=== PATIENT | female | born 1945 | race Caucasian/White ===

== ENCOUNTER 2020-02-11 14:34 | Outpatient (CLI) | payer MEDICARE, SELFPAY ==
--- NOTE | ~2020-02-11 | CT_ITS ---
EXAMINATION: CT abdomen pelvis w con INDICATION: Gastroesophageal reflux disease, nausea and vomiting, weight loss, history of cervical ca ncer TECHNIQUE: Computed tomographic images of the abdomen and pelvis were obtained after the administrati on of 100 cc of Omnipaque 350 intravenous contrast. The dose-length product (DLP) was 422.97 mGy-cm. Automated exposure control and iterative reconstruction technique were employed. COMPARISON: 07/11/2017 FINDINGS: There is moderate emphysema of the visualized lung bases. The heart size is normal. Punctat e calcifications in otherwise normal appearing liver and spleen likely represent healed granulomatous disease. The pancreas and adrenal glands are normal. There is chronic mild distention of the gallbla dder. The kidneys are unremarkable. No pathologically enlarged abdominal or pelvic lymph nodes are id entified. There is calcified atherosclerosis of the aorta and many of the other arteries. There is no free intraperitoneal gas or evidence of bowel obstruction. A large volume of colonic stool is presen t. A pain pump is implanted in the subcutaneous tissues of the left anterior abdominal wall. The cat heter enters the central spinal canal at the L1-2 level. There is severe lumbar spondylosis. IMPRESSION: 1. Constipation. Reviewed, dictated and finalized at location A. IMPRESSION: 1. Constipation.
[2020-02-11 15:04] LABS: Estimated Glomerular Filt Rate > 60
== END 2020-02-11 14:35 | disposition home or self-care (01) ==
LOC: ANHIMG 14:35
PROVIDERS: PCP Family Medicine; Visit Provider Internal Medicine Gastroenterology
DX: M85.80 Other specified disorders of bone density and structure, unspecified site (principal); K59.00 Constipation, unspecified
CPT/HCPCS: 36415; 74177; Q9967

== ENCOUNTER 2020-02-23 07:00 | Outpatient (CLI) | payer MEDICARE, SELFPAY ==
--- NOTE | ~2020-02-23 | DEXA_ITS ---
Bone Density Report Name: Khushbu Avina Age: 74 Sex: Female Ethnicity: White Date of : 1945 Indication: postmenopausal; hysterectomy; Referring Provider: MARYSE [place] D.O. Study: Bone densitometry was performed. Exam Date: February 23, 2020 Accession number: [id number] Bone Density: Region BMD T-score Z-score Classification AP Spine (L1-L4) 0.862 -1.7 0.7 Osteopenia Femoral Neck (Right) 0.579 -2.4 -0.3 Osteopenia Total Hip (Right) 0.763 -1.5 0.3 Osteopenia World Health Organization criteria for BMD impression classify patients as: Normal (T-score at or above -1.0), Osteopenia (T-score between -1.0 and -2.5), or Osteoporosis (T-score at or below -2.5). 10-year Fracture Risk(1): Major Osteoporotic Fracture 16% Hip Fracture 4.6% Reported Risk Factors: [place] (), Neck BMD=0.579, BMI=26.4 (1) FRAX(R) Version 3.08. Fracture probability calculated for an untreated patient. Fracture probability may be lower if the patient has received treatment. Previous Exams: Region Exam Age BMD T-score BMD Change BMD Change Date g/cm2 vs Baseline vs Previous AP Spine(L1-L4) 02/23/2020 74 0.862 -1.7 -0.082(-8.7%)# -0.097(-10.1%) 07/29/2015 69 0.959 -0.8 0.015(1.6%)# -0.014(-1.4%)# 06/07/2012 66 0.973 -0.7 0.029(3.1%)# 0.029(3.1%)# 12/25/2005 60 0.944 -0.9 Total Hip(Right) 02/23/2020 74 0.763 -1.5 -0.129(-14.5%) -0.109(-12.5%) 07/29/2015 69 0.872 -0.6 -0.020(-2.3%)# -0.058(-6.2%)# 06/07/2012 66 0.930 -0.1 0.038(4.2%)# 0.038(4.2%)# 12/25/2005 60 0.892 -0.4 *Denotes significance at 95% confidence level, LSC for AP Spine = 0.022 g/cm2, LSC for Total Hip = 0.027 g/cm2 Clinical Information Provided by Patient: Has used the following medications: Vitamin D Has the following medical conditions: Hysterectomy Patient maximum height was 66 Menopause Age: 54 Does not regularly consume dairy products Drinks caffeinated beverages Onset of menses at age 11 Number of children 3 Impression: The patient has low bone mass, based on the Right Femoral Neck T-score. The patient has an estimated ten-year risk of hip fracture of 4.6% and an estimated ten-year risk of major fracture of 16%, based on the WHO FRAX algorithm. The BMD for the AP Spine(L1-L4) decreased, changing by -10.1% since the last DXA exam. The BMD for the Total Hip(Right) decreased, changing by -12.5% since the last DXA exam. Discussion: BONE DENSITY IS LOW AT ONE OR MORE SKELETAL SITES. THE PATIENT'S BMD A
== END 2020-02-23 15:11 | disposition home or self-care (01) ==
LOC: ANHIMG 05-17 07:23
PROVIDERS: Visit Provider Internal Medicine Gastroenterology
DX: M85.88 Other specified disorders of bone density and structure, other site (principal); M85.851 Other specified disorders of bone density and structure, right thigh
CPT/HCPCS: 77080

== ENCOUNTER 2020-02-24 01:03 | Outpatient (CLI) | payer MEDICARE, SELFPAY ==
[2020-02-24 19:08] LABS: SARS-CoV-2 RNA PCR Negative
== END 2020-02-24 01:04 | disposition home or self-care (01) ==
LOC: ANHCOVIDDT 01:03
PROVIDERS: PCP Student in an Organized Health Care Education/Training Program; Visit Provider Internal Medicine Gastroenterology
DX: Z01.812 Encounter for preprocedural laboratory examination (principal); Z11.59 Encounter for screening for other viral diseases
CPT/HCPCS: 87635; C9803; U0003

== ENCOUNTER 2020-02-26 00:52 | Day surgery (SDC) | payer MEDICARE, SELFPAY ==
[2020-02-19 12:16] VITALS: BMI 27.1
[2020-02-26 08:50] VITALS: BP 139/62; PULSE 62; RESP 18; TEMP 36.8; O2SAT 99
[2020-02-26] MEDS: LACTATED RINGERS 1,000 ML 150 ML IV CONT (09:19)
[2020-02-26 09:23] LABS: Glucose Point of Care 96 (65-105)
--- NOTE | 2020-02-26 09:24 | WPDANESEPPF ---
Anes - Initial Pre Proc Eval Procedure: Operation Date: 02/26/20 09:30 Proposed Procedures p Esophagogastroduodenoscopy - Lukas Ellison DO Date/Time: 02/26/20 09:24 Surgeon: Lukas Ellison DO Pre Op Diagnosis: Gerd/ Weight Loss/ Low Bone Mass/ Vomiting Patient Data Age: 74 Gender: F Height: 5 ft 5 in Weight: 73.3 kg Last Vital Signs Temp 36.8 C 02/26/20 08:50 Pulse 62 02/26/20 08:50 Resp 18 02/26/20 08:50 BP 139/62 02/26/20 08:50 Pulse Ox 99 02/26/20 08:50 Allergies Allergy/AdvReac Type Severity Reaction Status Date / Time amitriptyline Allergy Mild RECTAL Verified 02/26/20 09:00 BLEEDING cortisone Allergy Mild Swelling Verified 02/26/20 09:00 Corticosteroids Allergy Unknown Swelling Verified 02/26/20 09:00 (Glucocorticoids) duloxetine Allergy Unknown Unknown Verified 02/26/20 09:00 fluticasone Allergy Unknown Unknown Verified 02/26/20 09:00 Penicillins Allergy Unknown Unknown Verified 02/26/20 09:00 FLUTICASONE FUROATE Allergy Unknown TONGUE Uncoded 02/26/20 09:00 SWELLING Home Medications Medication Instructions Recorded Confirmed Type diltiazem HCl 240 mg capsule,24 240 mg PO DAILY 07/22/19 02/26/20 History hr,extended release vit C 250 mg-E 200 unit-zinc 40 1 tablet PO BID 07/22/19 02/26/20 History mg-copper 1 mt-mvfzyd-fcedqa capsule metformin 500 mg tablet,extended 1,000 mg PO QPM #180 tablet 09/18/19 02/26/20 Rx release 24 hr atorvastatin 80 mg tablet 80 mg PO DAILY #90 tablet 11/15/19 02/26/20 Rx furosemide 20 mg tablet 20 mg PO QAM #90 tablet 01/06/20 02/26/20 Rx levothyroxine 25 mcg tablet 25 mcg PO DAILY #90 tablet 02/19/20 02/26/20 Rx pantoprazole 40 mg PO BID 02/19/20 02/26/20 History Laboratory Tests 02/26/20 09:20 POC Capillary Glucose 96 mg/dl mg/dl (65-105) Patient hx anesthesia problems: none Family hx anesthesia problems: none [facility] Past Medical History Medical History Carpal tunnel syndrome, left Cervical cancer Hyperlipidemia Hypertension Type 2 diabetes mellitus Surgical History Surgical History H/O hemorrhoidectomy H/O: hysterectomy Family History Family History Father Diabetes mellitus Sibling Family history of cardiovascular disease Family history of liver disease Mother Carcinoma of colon Social History Social History Smoking status: Former smoker Second hand tobacco smoke exposure: No Smoking end date: 08/13/94 Alcohol intake: current Substance use: never Substance use type: does not use Gender identity (if verbalized by the patient): Female Anes - Eval Final PreProcedure Day of Procedure 02/26/20 09:24 Patient weight: overweight Heart: regular rate and rhythm Lungs: clear to auscultation Airway: Mallampati scale class II Neurological: alert and oriented Last oral intake: >/= 8 hours ASA classification: III Emergent: no Informed Consent: The patient's anesthetic plan and its attendant risks and benefits were discussed with the patient/family/POA. Questions were solicited and answers provided to the satisfaction of the patient/family/POA.
--- NOTE | 2020-02-26 10:02 | PM.IMHP ---
H&P: HPI History of Present Illness Chief complaint: Gerd/ Weight Loss/ Low Bone Mass/ Vomiting Narrative: Reason for visit is EGD. This very pleasant lady seen in consultation at request of the primary physician. Impression: Here is a very pleasant lady with nausea, vomiting and weight loss. Evaluate for underlying occult malignancy. Peptic ulcer disease should be excluded. This may be reflection of chronic opioid use.She does have a history of GERD. Chronic back pain. Chronic morphine pain pump. Diabetes mellitus. COPD. Hypothyroidism. Hypertension. Hyperlipidemia. Cervical cancer status post FAZAL and BSO. Recommendation: EGD. History: Very pleasant lady's being evaluated for nausea, vomiting and weight loss. The patient has a history of reflux disease. She takes pantoprazole 40 times b.i.d.. She continues to have symptoms. Her weight decreased from a to XL down to a size 14. The amount of lb loss is unknown. Patient is here for EGD to evaluate for lying peptic ulcer disease or occult malignancy. CT scan was unrewarding except emphysema is noted.. Physical examination: General: very pleasant patient in no acute distress. HEENT: Head was normocephalic sclerae is clear mouth without masses neck was supple. Heart: Rate rhythm regular without S3 or S4. Lungs: CTA. Abdomen: Soft with no guarding or rigidity. Bowel sounds were active. Neurologic: Cranial nerves 2 through 12 intact. No focal defects. No clonus. Musculoskeletal system: Revealed no joint tenderness or swelling no muscle atrophy. Extremities: Reveal no significant edema. Skin: Warm and dry with normal turgor. Mental status: intact. Patient is alert and oriented. Review of Systems Review of Systems: All systems reviewed & are unremarkable except as noted in HPI and below [facility] Past Medical History Medical History Carpal tunnel syndrome, left Cervical cancer Hyperlipidemia Hypertension Type 2 diabetes mellitus Surgical History Surgical History H/O hemorrhoidectomy H/O: hysterectomy Family History Family History Father Diabetes mellitus Sibling Family history of cardiovascular disease Family history of liver disease Mother Carcinoma of colon Social History Social History Smoking status: Former smoker Second hand tobacco smoke exposure: No Smoking end date: 08/13/94 Alcohol intake: current Substance use: never Substance use type: does not use Gender identity (if verbalized by the patient): Female Meds Home Medications and Allergies Home Medications Medication Instructions Recorded Confirmed Type diltiazem HCl 240 mg capsule,24 240 mg PO DAILY 07/22/19 02/26/20 History hr,extended release vit C 250 mg-E 200 unit-zinc 40 1 tablet PO BID 07/22/19 02/26/20 History mg-copper 1 hv-vweytp-umvyoq capsule metformin 500 mg tablet,extended 1,000 mg PO QPM #180 tablet 09/18/19 02/26/20 Rx release 24 hr atorvastatin 80 mg tablet 80 mg PO DAILY #90 tablet 11/15/19 02/26/20 Rx furosemide 20 mg tablet 20 mg PO QAM #90 tablet 01/06/20 02/26/20 Rx levothyroxine 25 mcg tablet 25 mcg PO DAILY #90 tablet 02/19/20 02/26/20 Rx pantoprazole 40 mg PO BID 02/19/20 02/26/20 History Allergies Allergy/AdvReac Type Severity Reaction Status Date / Time amitriptyline Allergy Mild RECTAL Verified 02/26/20 09:00 BLEEDING cortisone Allergy Mild Swelling Verified 02/26/20 09:00 Corticosteroids Allergy Unknown Swelling Verified 02/26/20 09:00 (Glucocorticoids) duloxetine Allergy Unknown Unknown Verified 02/26/20 09:00 fluticasone Allergy Unknown Unknown Verified 02/26/20 09:00 Penicillins Allergy Unknown Unknown Verified 02/26/20 09:00 FLUTICASONE FUROATE Allergy Unknown
[2020-02-26 10:20] VITALS: BP 123/61; PULSE 63; RESP 15; O2SAT 99
[2020-02-26 10:30] VITALS: BP 119/61; PULSE 63; RESP 16; O2SAT 99
[2020-02-26 10:40] VITALS: BP 123/65; PULSE 61; RESP 21; O2SAT 100
[2020-03-01 20:48] LABS: Alpha-1-Antitrypsin, QN 145 mg/dL (83-199)
== END 2020-02-26 11:00 | disposition home or self-care (01) ==
PROVIDERS: PCP Student in an Organized Health Care Education/Training Program; Visit Provider Internal Medicine Gastroenterology
PROC: 0DJ08ZZ Inspection of Upper Intestinal Tract, Via Natural or Artificial Opening Endoscopic (ICD-10-PCS; CPT 43235; principal; 2020-02-26 09:30)
DX: R11.2 Nausea with vomiting, unspecified (principal); R63.4 Abnormal weight loss; K44.9 Diaphragmatic hernia without obstruction or gangrene; I10 Essential (primary) hypertension; E78.5 Hyperlipidemia, unspecified; E11.9 Type 2 diabetes mellitus without complications; M54.9 Dorsalgia, unspecified; G89.29 Other chronic pain; Z79.891 Long term (current) use of opiate analgesic; Z85.41 Personal history of malignant neoplasm of cervix uteri; Z79.84 Long term (current) use of oral hypoglycemic drugs; Z87.891 Personal history of nicotine dependence
CPT/HCPCS: 43239; 36415; 82103; 87081; 88305; J2704; J7120

== ENCOUNTER → 2020-03-19 13:18 | Outpatient (CLI) | payer MEDICARE, SELFPAY ==
--- NOTE | ~2020-03-19 | CT_ITS ---
EXAMINATION: CT chest wo con EXAM DATE: 03/19/2020 13:35 INDICATION: Pulmonary emphysema, weight loss. TECHNIQUE: Spiral CT of the chest without contrast. Axial, coronal and sagittal images were reviewe d. Coronal maximum intensity pixel images of chest reviewed. The dose-length product (DLP) for this examination was 213.78 mGy-cm. The exposure was tailored according to patient size (auto mA exposur e control), and iterative reconstruction (ASIR) was used as additional dose reduction technique. The re is no prior study for comparison. FINDINGS: There is mild to moderate emphysema and hyperinflation. Right apical and other scattered r egions of post infectious residua. No suspicious nodules or acute airspace disease. There are no ple ural or pericardial effusions. Tracheobronchial tree is patent. There is no mediastinal, hilar or axillary lymphadenopathy. There is no pneumothorax. Heart normal in size. There is mild sanches ry arterial calcification, arterial sclerosis. Distended gallbladder. There is mild thoracic spondy losis without osteoblastic or osteolytic lesions identified. IMPRESSION: 1. Mild to moderate emphysema and hyperinflation. 2. Postinfectious residua. Reviewed, dictated and finalized at location A.
== END ==
PROVIDERS: Visit Provider Internal Medicine Gastroenterology
DX: J43.9 Emphysema, unspecified (principal); R63.4 Abnormal weight loss; R91.8 Other nonspecific abnormal finding of lung field
CPT/HCPCS: 71250

== ENCOUNTER 2020-04-02 13:47 | Outpatient (CLI) | payer MEDICARE, SELFPAY ==
--- NOTE | ~2020-04-02 | MM_ITS ---
EXAMINATION: MM screening katrina BI w corbin HISTORY: Screening mammogram TECHNIQUE: Craniocaudal and mediolateral oblique 3-D tomosynthesis images were obtained and synthetic 2-D images were generated. CAD analysis was submitted and interpreted. COMPARISON: 08/01/2016, 07/29/2015, 07/27/2014 bilateral digital screening mammogram examinations BREAST PARENCHYMAL COMPOSITION: There are scattered areas of fibroglandular density. FINDINGS: There is no evidence of suspicious mass, calcification, or architectural distortion to sugg est malignancy in either breast. Axillary tail lymph nodes are noted on the right, previously demonst rated on 07/29/2015. There has been no suspicious interval change. IMPRESSION: 1. No mammographic evidence of malignancy. 2. Recommend routine screening mammography in one year. BI-RADS Category 2: Benign finding(s). Reviewed, dictated and finalized at location A.
== END 2020-04-02 13:48 | disposition home or self-care (01) ==
PROVIDERS: PCP Student in an Organized Health Care Education/Training Program; Visit Provider Student in an Organized Health Care Education/Training Program
DX: Z12.31 Encounter for screening mammogram for malignant neoplasm of breast (principal)
CPT/HCPCS: 77063; 77067

== ENCOUNTER 2020-06-09 09:38 | Outpatient (CLI) | payer MEDICARE, SELFPAY ==
--- NOTE | ~2020-06-09 | NM_ITS ---
EXAM: NM gastric emptying study DATE: 06/09/2020 14:35 INDICATION: Early satiety TECHNIQUE: A gastric emptying study was performed using the methodology of Carl RODRÍGUEZ, et al. J Nucl Med 2007; 48:568-572. The patient was given a meal consisting of 2 scrambled eggs labeled with 1 mCi Tc-99m sulfur colloid, 2 slices of toast, two packages of jam, and approximately 120 mL of water. Si multaneous anterior and posterior 1-min images of the abdomen were obtained with the patient supine a t multiple time points over a total period of 4 hours. The geometric mean of anterior and posterior v iews was determined, and the percentage retention was calculated for each time point. COMPARISON: None. FINDINGS: Gastric retention of the radiotracer-labeled meal was 83%, 67%, and 32% at the 79 minute, 137 minute, and 254 minute time points, respectively. With this technique, apparent rapid gastric emptying is tsai ggested by <30% gastric retention at 1 hour. Delayed gastric emptying is defined by gastric retention of >90% at 1 hour, >60% retention at 2 hours, or >10% retention at 4 hours. IMPRESSION: 1. Delayed gastric emptying. Reviewed, dictated and finalized at location B.
== END 2020-06-09 09:39 | disposition home or self-care (01) ==
PROVIDERS: PCP Student in an Organized Health Care Education/Training Program; Visit Provider Physician Assistant Medical
DX: R68.81 Early satiety (principal); K30 Functional dyspepsia
CPT/HCPCS: 78264; A9541

== ENCOUNTER → 2020-12-27 01:07 | Outpatient (CLI) | payer MEDICARE, SELFPAY ==
[2020-12-27 18:48] LABS: SARS-CoV-2 RNA PCR Negative
== END ==
PROVIDERS: PCP Student in an Organized Health Care Education/Training Program; Visit Provider Internal Medicine Gastroenterology
DX: Z01.812 Encounter for preprocedural laboratory examination (principal); Z20.822 Contact with and (suspected) exposure to COVID-19
CPT/HCPCS: C9803; U0003; U0005

== ENCOUNTER 2020-12-30 01:31 | Day surgery (SDC) | payer MEDICARE, SELFPAY ==
[2020-12-21 13:28] VITALS: BMI 29.3
[2020-12-30 11:50] VITALS: BP 139/72; PULSE 73; RESP 18; TEMP 36.7; O2SAT 98; BMI 29.0
[2020-12-30] MEDS: LACTATED RINGERS 1,000 ML 150 ML IV CONT (12:02)
[2020-12-30 12:04] LABS: Glucose Point of Care 100 mg/dl (65-105)
--- NOTE | 2020-12-30 12:15 | WPDGICN ---
GI Consult Note Consult date/time: 12/30/20 12:15 HPI: Reason for visit EGD. This very pleasant lady's seen in consultation at the request of the primary physician. Impression: Very pleasant lady with abdominal pain. We evaluate for underlying peptic ulcer disease. Patient does have a history reflux disease and documented gastroparesis. In view of the weight loss occult neoplastic disease should be excluded. Cervical cancer. COPD. HLD. HTN. DM. Chronic constipation. This may be secondary to chronic idiopathic constipation. Recommendation: EGD. History: This very pleasant lady's here to evaluate for abdominal pain. She complains of epigastric abdominal pain that is constant nature. Eating does exacerbate her symptoms. Nausea, vomiting, hematemesis, dysphagia, odynophagia indigestion or tonight. She reports constipation. She takes MiraLax noted to have a bowel movement. Hematochezia, melena and acholic stools are denied. Previous colonoscopy was unremarkable. patient is here for EGD. She reports a 40 lb weight loss in the last year. Nuclear medicine gastric emptying study was positive for gastroparesis. General: very pleasant patient in no acute distress. HEENT: Head was normocephalic sclerae is clear mouth without masses neck was supple. Heart: Rate rhythm regular without S3 or S4. Lungs: Decreased breath sounds bilaterally.. Abdomen: Soft with no guarding or rigidity. Bowel sounds were active. Neurologic: Cranial nerves 2 through 12 intact. No focal defects. No clonus. Musculoskeletal system: Revealed no joint tenderness or swelling no muscle atrophy. Extremities: Reveal no significant edema. Skin: Warm and dry with normal turgor. Mental status: intact. Patient is alert and oriented. Review of Systems Review of Systems: All systems reviewed & are unremarkable except as noted in HPI and below [facility] Past Medical History Medical History (Updated 12/30/20 @ 12:15 by Lukas Ellison DO) Cervical cancer COPD (chronic obstructive pulmonary disease) Gastroparesis GERD (gastroesophageal reflux disease) Hyperlipidemia Hypertension Type 2 diabetes mellitus Surgical History Surgical History H/O hemorrhoidectomy H/O: hysterectomy Family History Family History Father Diabetes mellitus Sibling Family history of cardiovascular disease Family history of liver disease Mother Carcinoma of colon Social History Social History Smoking packs per day: 0.5 Smoking cigarettes per day: 10.0 Years smoked: 5 Smoking pack-years: 2.50 Smoking status: Former smoker Tobacco type: cigarettes Second hand tobacco smoke exposure: No Smoking end date: 08/13/94 Alcohol intake: current Substance use: never Substance use type: does not use Living arrangements: with family Gender identity (if verbalized by the patient): Female Spiritual care concerns: No Meds Home Medications and Allergies Home Medications Medication Instructions Recorded Confirmed Type diltiazem HCl 240 mg capsule,24 240 mg PO DAILY 07/22/19 12/21/20 History hr,extended release vit C 250 mg-vit E 90 mg-zinc 40 1 tablet PO BID 07/22/19 12/21/20 History mg-copper 1 tk-zphvhk-pqfmet capsule metformin 500 mg tablet,extended 1,000 mg PO QPM #180 tablet 09/18/19 12/21/20 Rx release 24 hr furosemide 20 mg tablet 20 mg PO QAM #90 tablet 01/06/20 12/21/20 Rx pantoprazole 40 mg PO BID 02/19/20 12/21/20 History atorvastatin [Lipitor] 80 mg PO DAILY 12/21/20 12/21/20 History levothyroxine [Synthroid] 25 mcg PO DAILY 12/21/20 12/21/20 History Allergies Allergy/AdvReac Type Severity Reaction Status Date / Time amitriptyline Allergy Mild RECTAL Verified 12/30/20 11:49 BLEEDING cortisone Allergy Mild Swelling Veri
--- NOTE | 2020-12-30 12:34 | WPDANESEPPF ---
Anes - Initial Pre Proc Eval Procedure: Operation Date: 12/30/20 11:30 Proposed Procedures p Esophagogastroduodenoscopy - Lukas Ellison DO Date/Time: 12/30/20 12:34 Surgeon: Lukas Ellison DO Pre Op Diagnosis: Epigastric Pain Patient Data Age: 75 Gender: F Height: 5 ft 5 in Weight: 79.3 kg Last Vital Signs Temp 98.0 F 12/30/20 11:50 Pulse 73 12/30/20 11:50 Resp 18 12/30/20 11:50 BP 139/72 12/30/20 11:50 Pulse Ox 98 12/30/20 11:50 Allergies Allergy/AdvReac Type Severity Reaction Status Date / Time amitriptyline Allergy Mild RECTAL Verified 12/30/20 11:49 BLEEDING cortisone Allergy Mild Swelling Verified 12/30/20 11:49 Corticosteroids Allergy Unknown Swelling Verified 12/30/20 11:49 (Glucocorticoids) duloxetine Allergy Unknown Unknown Verified 12/30/20 11:49 fluticasone Allergy Unknown Unknown Verified 12/30/20 11:49 Penicillins Allergy Unknown Unknown Verified 12/30/20 11:49 aluminum hydroxide Allergy Diarrhea Verified 12/30/20 11:49 [From Mylanta] calcium carbonate Allergy Diarrhea Verified 12/30/20 11:49 [From Mylanta] magnesium [From Mylanta] Allergy Diarrhea Verified 12/30/20 11:49 magnesium hydroxide Allergy Diarrhea Verified 12/30/20 11:49 [From Mylanta] simethicone [From Mylanta] Allergy Diarrhea Verified 12/30/20 11:49 FLUTICASONE FUROATE Allergy Unknown TONGUE Uncoded 12/30/20 11:49 SWELLING Home Medications Medication Instructions Recorded Confirmed Type diltiazem HCl 240 mg capsule,24 240 mg PO DAILY 07/22/19 12/21/20 History hr,extended release vit C 250 mg-vit E 90 mg-zinc 40 1 tablet PO BID 07/22/19 12/21/20 History mg-copper 1 ax-xfpeub-uogedd capsule metformin 500 mg tablet,extended 1,000 mg PO QPM #180 tablet 09/18/19 12/21/20 Rx release 24 hr furosemide 20 mg tablet 20 mg PO QAM #90 tablet 01/06/20 12/21/20 Rx pantoprazole 40 mg PO BID 02/19/20 12/21/20 History atorvastatin [Lipitor] 80 mg PO DAILY 12/21/20 12/21/20 History levothyroxine [Synthroid] 25 mcg PO DAILY 12/21/20 12/21/20 History Laboratory Tests 12/30/20 12:00 POC Capillary Glucose 100 mg/dl mg/dl (65-105) Patient hx anesthesia problems: none Family hx anesthesia problems: none [facility] Past Medical History Medical History (Updated 12/30/20 @ 12:15 by Lukas Ellison DO) Cervical cancer COPD (chronic obstructive pulmonary disease) Gastroparesis GERD (gastroesophageal reflux disease) Hyperlipidemia Hypertension Type 2 diabetes mellitus Surgical History Surgical History H/O hemorrhoidectomy H/O: hysterectomy Family History Family History Father Diabetes mellitus Sibling Family history of cardiovascular disease Family history of liver disease Mother Carcinoma of colon Social History Social History Smoking packs per day: 0.5 Smoking cigarettes per day: 10.0 Years smoked: 5 Smoking pack-years: 2.50 Smoking status: Former smoker Tobacco type: cigarettes Second hand tobacco smoke exposure: No Smoking end date: 08/13/94 Alcohol intake: current Substance use: never Substance use type: does not use Living arrangements: with family Gender identity (if verbalized by the patient): Female Spiritual care concerns: No Anes - Eval Final PreProcedure Day of Procedure 12/30/20 12:34 Patient weight: overweight Heart: regular rate and rhythm Lungs: clear to auscultation Airway: Mallampati scale class II Neurological: alert and oriented Last oral intake: >/= 8 hours ASA classification: III Emergent: no Anesthetic plan: proceed Anesthesia type and monitoring: general GIVS and standard monitoring Informed Consent: The patient's anesthetic plan and its attendant risks and benefits were discussed with the patient/family/POA. Questions wer
[2020-12-30 13:14] VITALS: BP 127/68; PULSE 58; RESP 20; O2SAT 93
[2020-12-30 13:24] VITALS: BP 136/70; PULSE 71; RESP 24; O2SAT 99
[2020-12-30 13:34] VITALS: BP 147/93; PULSE 74; RESP 27; O2SAT 99
== END 2020-12-30 14:09 | disposition home or self-care (01) ==
PROVIDERS: PCP Student in an Organized Health Care Education/Training Program; Visit Provider Internal Medicine Gastroenterology
PROC: 0DJ08ZZ Inspection of Upper Intestinal Tract, Via Natural or Artificial Opening Endoscopic (ICD-10-PCS; CPT 43235; principal; 2020-12-30 11:30)
DX: R10.9 Unspecified abdominal pain (principal); K21.9 Gastro-esophageal reflux disease without esophagitis; K44.9 Diaphragmatic hernia without obstruction or gangrene; R63.4 Abnormal weight loss; K31.84 Gastroparesis; I10 Essential (primary) hypertension; E78.5 Hyperlipidemia, unspecified; E11.9 Type 2 diabetes mellitus without complications; J44.9 Chronic obstructive pulmonary disease, unspecified; Z85.41 Personal history of malignant neoplasm of cervix uteri; Z87.891 Personal history of nicotine dependence; Z79.84 Long term (current) use of oral hypoglycemic drugs
CPT/HCPCS: 43239; 82948; 87081; 88305; J2704; J7120

== ENCOUNTER 2021-01-24 08:11 | Outpatient (CLI) | payer MEDICARE, SELFPAY ==
--- NOTE | ~2021-01-24 | CT_ITS ---
EXAMINATION: CT abdomen pelvis w con EXAM DATE: 01/24/2021 08:41 INDICATION: Mid abdominal pain 3-4 months, weight loss, nausea, regurgitation of food. Cervical cance r 2000. TECHNIQUE: Spiral CT of the abdomen and pelvis was performed following intravenous injection of 100 m L Omnipaque 350. Axial, coronal and sagittal images of the abdomen and pelvis were reviewed. The do se-length product (DLP) for this examination was 694.61 mGy-cm. The exposure was tailored according to patient size (auto mA exposure control), and iterative reconstruction (ASIR) was used as additiona l dose reduction technique. Comparison is made to prior examination from 02/11/2020. FINDINGS: The liver, spleen, adrenal glands and pancreas are unremarkable. Gallbladder is unremarkab le. No biliary obstruction. Portal and splenic veins are patent. Kidneys enhance symmetrically. T here is no hydronephrosis. The uterus is not identified and has likely been surgically resected. T he bladder is unremarkable. Pelvic surgical clips from lymph node dissection. There is no retroperito rosales or pelvic lymphadenopathy. There is mild to moderate scattered arteriosclerotic disease. Left- sided pain pump. There are no findings to suggest appendicitis. The stomach and small bowel are unremarkable. There is moderate amount of colonic stool. No free intraperitoneal gas. The heart is normal in size. T here are no pericardial or pleural effusions. Some scattered right basilar granulomata. Mild emphyse ma. There are no osteoblastic or osteolytic lesions identified. IMPRESSION: 1. Moderate amount of colonic stool. 2. No evidence metastatic disease. 3. Mild emphysema. Reviewed, dictated and finalized at location B.
[2021-01-24 08:37] LABS: Estimated Glomerular Filt Rate > 60
== END 2021-01-24 08:12 | disposition home or self-care (01) ==
PROVIDERS: PCP Student in an Organized Health Care Education/Training Program; Visit Provider Internal Medicine Gastroenterology
DX: R10.9 Unspecified abdominal pain (principal); R63.4 Abnormal weight loss; R11.0 Nausea; R11.10 Vomiting, unspecified; J43.9 Emphysema, unspecified
CPT/HCPCS: 74177; Q9967

== ENCOUNTER 2021-04-21 10:14 | Outpatient (CLI) | payer MEDICARE, SELFPAY ==
--- NOTE | ~2021-04-21 | MM_ITS ---
EXAMINATION: MM screening katrina BI w corbin HISTORY: Screening mammogram TECHNIQUE: Craniocaudal and mediolateral oblique 3-D tomosynthesis images were obtained and synthetic 2-D images were generated. CAD analysis was submitted and interpreted. COMPARISON: 04/02/2020, 08/01/2016 bilateral digital screening mammogram examinations BREAST PARENCHYMAL COMPOSITION: There are scattered areas of fibroglandular density. FINDINGS: There is no evidence of suspicious mass, calcification, or architectural distortion to sugg est malignancy in either breast. There has been no suspicious interval change. IMPRESSION: 1. No mammographic evidence of malignancy. 2. Recommend routine screening mammography in one year. BI-RADS Category 1: Negative Reviewed, dictated and finalized at location A.
== END 2021-04-21 10:15 | disposition home or self-care (01) ==
LOC: ANHIMG 10:20
PROVIDERS: PCP Student in an Organized Health Care Education/Training Program; Visit Provider Student in an Organized Health Care Education/Training Program
DX: Z12.31 Encounter for screening mammogram for malignant neoplasm of breast (principal)
CPT/HCPCS: 77063; 77067

== ENCOUNTER 2021-07-04 01:22 | Day surgery (SDC) | payer MEDICARE, SELFPAY ==
[2021-05-09 14:05] VITALS: BMI 28.4
[2021-06-15 09:27] VITALS: BMI 29.3
--- NOTE | 2021-06-22 13:25 | PC.NURSE ---
PT CALLED AND UPDATED OF NEW DATE AND TIME FOR COLONOSCOPY, PT STATES UNDERSTANDING AND DENIES ANY CHANGES IN PAST MEDICAL HISTORY SINCE PRE-OP PHONE CALL.
--- NOTE | 2021-07-04 10:54 | WPDANESEPPF ---
Anes - Initial Pre Proc Eval Procedure: Operation Date: 07/04/21 14:15 Proposed Procedures p Colonoscopy - Lukas Dunlap MD <Noah Castro MD - Last Filed: 07/05/21 07:13> Date/Time: 07/04/21 10:54 <Noah Castro MD - Last Filed: 07/05/21 07:13> Surgeon: Lukas Dunlap MD <Noah Castro MD - Last Filed: 07/05/21 07:13> Pre Op Diagnosis: change in bowel habits <Noah Castro MD - Last Filed: 07/05/21 07:13> Patient Data Age: 75 Gender: F Height: 1.65 m Weight: 80 kg <Noah Castro MD - Last Filed: 07/05/21 07:13> Allergies Allergy/AdvReac Type Severity Reaction Status Date / Time amitriptyline Allergy Mild RECTAL Verified 07/04/21 13:03 BLEEDING cortisone Allergy Mild Swelling Verified 07/04/21 13:03 Corticosteroids Allergy Unknown Swelling Verified 07/04/21 13:03 (Glucocorticoids) duloxetine Allergy Unknown Unknown Verified 07/04/21 13:03 fluticasone Allergy Unknown Unknown Verified 07/04/21 13:03 Penicillins Allergy Unknown Unknown Verified 07/04/21 13:03 aluminum hydroxide Allergy Diarrhea Verified 07/04/21 13:03 [From Mylanta] calcium carbonate Allergy Diarrhea Verified 07/04/21 13:03 [From Mylanta] magnesium [From Mylanta] Allergy Diarrhea Verified 07/04/21 13:03 magnesium hydroxide Allergy Diarrhea Verified 07/04/21 13:03 [From Mylanta] simethicone [From Mylanta] Allergy Diarrhea Verified 07/04/21 13:03 FLUTICASONE FUROATE Allergy Unknown TONGUE Uncoded 07/04/21 13:03 SWELLING <Noah Castro MD - Last Filed: 07/05/21 07:13> Home Medications Medication Instructions Recorded Confirmed Type diltiazem HCl 240 mg capsule,24 240 mg PO DAILY 07/22/19 07/04/21 History hr,extended release vit C 250 mg-vit E 90 mg-zinc 40 1 tablet PO BID 07/22/19 06/15/21 History mg-copper 1 [id number]-[id number] capsule pantoprazole 40 mg PO BID 02/19/20 07/04/21 History atorvastatin [Lipitor] 80 mg PO DAILY 12/21/20 06/15/21 History levothyroxine [Synthroid] 25 mcg PO DAILY 12/21/20 07/04/21 History metformin 500 mg PO DAILY 05/09/21 06/15/21 History <Noah Castro MD - Last Filed: 07/05/21 07:13> Patient hx anesthesia problems: none <Alonso Blanton MD - Last Filed: 07/04/21 13:25> Family hx anesthesia problems: none <Alonso Blanton MD - Last Filed: 07/04/21 13:25> Results Review: All pre-operative results and documents have been reviewed as part of the pre-operative evaluation. <Noah Castro MD - Last Filed: 07/05/21 07:13> [facility] Past Medical History Medical History: Medical History Arthritis Back pain Cervical cancer COPD (chronic obstructive pulmonary disease) Diabetes Gastroparesis GERD (gastroesophageal reflux disease) Hiatal hernia Hyperlipidemia Hypertension Hypothyroidism Type 2 diabetes mellitus <Noah Castro MD - Last Filed: 07/05/21 07:13> Surgical History Surgical History: Surgical History H/O hemorrhoidectomy H/O: hysterectomy <Noah Castro MD - Last Filed: 07/05/21 07:13> Family History Family History: Family History Father Diabetes mellitus Sibling Family history of cardiovascular disease Family history of liver disease Mother Carcinoma of colon <Noah Castro MD - Last Filed: 07/05/21 07:13> Social History Social History: Social History Smoking packs per day: 1 Smoking cigarettes per day: 20.0 Years smoked: 10 Smoking pack-years: 10.00 Smoking status: Former smoker Tobacco type: cigarettes Second hand tobacco smoke exposure: No Smoking end date: 08/13/94 Alcohol intake: current Alcohol use details: very rarely Substance use: never Substance use type: does not u
--- NOTE | 2021-07-04 12:58 | WPDGICN ---
Assessment and Plan Assessment and plan (1) Constipation: Code(s): K59.00 - Constipation, unspecified Status: Acute Assessment and Plan: Patient with change in bowel habits and worsening constipation. This is currently controlled with MiraLax. Because of ongoing associated abdominal pain colonoscopy will be performed. Further recommendations will be given after endoscopy. (2) Epigastric abdominal pain: Code(s): R10.13 - Epigastric pain Status: Acute Assessment and Plan: Patient has underlying epigastric pain that has persisted. Plan is for colonoscopy to evaluate more thoroughly. Recent EGD unremarkable. She was treated for GE reflux disease with pantoprazole 40mg p.o. daily (3) GERD (gastroesophageal reflux disease): Code(s): K21.9 - Gastro-esophageal reflux disease without esophagitis Status: Acute Assessment and Plan: GE reflux disease appears controlled on current dose of pantoprazole 40mg p.o. daily will continue this medication as well as anti-reflux measures. GI Consult Note Consult date/time: 07/04/21 12:58 HPI: Khushbu Avina is a 75 year old female Presents for colonoscopy. Patient has complaints of chronic constipation. She currently is improved bowel movements with taking MiraLax every other day. She does continue to have mid abdominal discomfort. An EGD performed by Dr. Ellison was unremarkable. Patient presents today for colonoscopy to assess for underlying disease. Family history is noncontributory. She has been treated for GE reflux and remains on PPI therapy. [facility] Past Medical History Medical History (Updated 07/04/21 @ 10:58 by Noah Castro MD) Arthritis Back pain Cervical cancer COPD (chronic obstructive pulmonary disease) Diabetes Gastroparesis GERD (gastroesophageal reflux disease) Hiatal hernia Hyperlipidemia Hypertension Hypothyroidism Type 2 diabetes mellitus Surgical History Surgical History H/O hemorrhoidectomy H/O: hysterectomy Family History Family History Father Diabetes mellitus Sibling Family history of cardiovascular disease Family history of liver disease Mother Carcinoma of colon Social History Social History Smoking packs per day: 1 Smoking cigarettes per day: 20.0 Years smoked: 10 Smoking pack-years: 10.00 Smoking status: Former smoker Tobacco type: cigarettes Second hand tobacco smoke exposure: No Smoking end date: 08/13/94 Alcohol intake: current Alcohol use details: very rarely Substance use: never Substance use type: does not use Living arrangements: alone Gender identity (if verbalized by the patient): Female Spiritual care concerns: No Meds Home Medications and Allergies Home Medications Medication Instructions Recorded Confirmed Type diltiazem HCl 240 mg capsule,24 240 mg PO DAILY 07/22/19 06/15/21 History hr,extended release vit C 250 mg-vit E 90 mg-zinc 40 1 tablet PO BID 07/22/19 06/15/21 History mg-copper 1 iq-cvkwge-pertxn capsule pantoprazole 40 mg PO BID 02/19/20 06/15/21 History atorvastatin [Lipitor] 80 mg PO DAILY 12/21/20 06/15/21 History levothyroxine [Synthroid] 25 mcg PO DAILY 12/21/20 06/15/21 History metformin 500 mg PO DAILY 05/09/21 06/15/21 History Allergies Allergy/AdvReac Type Severity Reaction Status Date / Time amitriptyline Allergy Mild RECTAL Verified 07/04/21 13:03 BLEEDING cortisone Allergy Mild Swelling Verified 07/04/21 13:03 Corticosteroids Allergy Unknown Swelling Verified 07/04/21 13:03 (Glucocorticoids) duloxetine Allergy Unknown Unknown Verified 07/04/21 13:03 fluticasone Allergy Unknown Unknown Verified 07/04/21 13:03 Penicillins Allergy Unknown Unknown Verified 07/04/21 13:03 aluminum hydroxide Allergy
[2021-07-04 13:05] VITALS: BP 154/71; PULSE 85; RESP 20; TEMP 36.5; O2SAT 97; BMI 31.2
[2021-07-04] MEDS: LACTATED RINGERS 1,000 ML 150 ML IV CONT (13:08)
[2021-07-04 13:29] LABS: Glucose Point of Care 115 mg/dl (65-105)
[2021-07-04 14:03] VITALS: BP 123/66; PULSE 82; RESP 21; O2SAT 98
[2021-07-04 14:13] VITALS: BP 144/88; PULSE 81; RESP 17; O2SAT 99
[2021-07-04 14:23] VITALS: BP 153/85; PULSE 75; RESP 23; O2SAT 100
== END 2021-07-04 14:38 | disposition home or self-care (01) ==
PROVIDERS: PCP Student in an Organized Health Care Education/Training Program; Visit Provider Internal Medicine Gastroenterology
PROC: 0DJD8ZZ Inspection of Lower Intestinal Tract, Via Natural or Artificial Opening Endoscopic (ICD-10-PCS; CPT 45378; principal; 2021-07-04 14:15)
DX: K59.00 Constipation, unspecified (principal); K64.8 Other hemorrhoids; R10.13 Epigastric pain; K21.9 Gastro-esophageal reflux disease without esophagitis; I10 Essential (primary) hypertension; E78.5 Hyperlipidemia, unspecified; E03.9 Hypothyroidism, unspecified; E11.9 Type 2 diabetes mellitus without complications; J44.9 Chronic obstructive pulmonary disease, unspecified; Z85.42 Personal history of malignant neoplasm of other parts of uterus; Z87.891 Personal history of nicotine dependence; Z79.84 Long term (current) use of oral hypoglycemic drugs
CPT/HCPCS: 45378; 82948; J2704; J7120

== ENCOUNTER 2021-09-09 07:07 | Outpatient (CLI) | payer MEDICARE, SELFPAY ==
--- NOTE | ~2021-09-09 | NM_ITS ---
EXAMINATION: NM hepatobiliary wo pharm DATE: 09/09/2021 11:24 INDICATION: Epigastric abdominal pain. COMPARISON: Hepatobiliary scintigraphy 09/12/2016, CT 01/24/2021 TECHNIQUE: 5.2 mCi Tc-99m mebrofenin (Choletec) was administered intravenously. Scintigraphic images of the abdomen were obtained for one hour. Then, the patient drank 8 oz Ensure, and imaging was cont inued for 60 minutes. FINDINGS: There is normal clearance of radiotracer from the blood pool. There is homogeneous tracer u ptake by the liver. Activity progresses to the bowel and gallbladder. Gallbladder ejection fraction (GBEF) was 81%. Note that with this technique, normal GBEF >= 33%. IMPRESSION: 1. Normal hepatobiliary scintigraphy. Reviewed, dictated and finalized at location [facility]. ERY HOST
== END 2021-09-09 07:08 | disposition home or self-care (01) ==
LOC: ANHIMG 07:12
PROVIDERS: PCP Student in an Organized Health Care Education/Training Program; Visit Provider Student in an Organized Health Care Education/Training Program
DX: R10.13 Epigastric pain (principal)
CPT/HCPCS: 78226; A9537

== ENCOUNTER 2022-06-05 18:01 | Emergency (ER) | payer MEDICARE, SELFPAY ==
--- NOTE | ~2022-06-05 | CT_ITS ---
EXAMINATION: CT abdomen pelvis w con DATE: 06/05/2022 20:54 INDICATION: Generalized abdominal pain. History of cervical cancer. TECHNIQUE: Computed tomography (CT) of the abdomen and pelvis was performed with 100 CC Omnipaque 350 intravenous contrast. Automated exposure control and iterative reconstruction technique were employe d. Exam dose: 603.63 mGy-cm total exam DLP. COMPARISON: 09/09/2021 radionuclide hepatobiliary scan, reported normal 01/24/2021 CT abdomen pelvis FINDINGS: Minimal discoid atelectasis or scarring primarily the lingula and right lower lobe. No infi ltrate or consolidation in the included lung bases. Heart size is within normal range. No pericardial or pleural effusion. Small sliding hiatal hernia. No hepatic or splenic benign mass lesion. Multiple calcified splenic granulomas. The gallbladder is d istended. Stable size of bile ducts since 01/24/2021, within normal range. Mild prominence of the panc reatic duct, which measures up to 5.8 mm compared to 5.2 mm diameter on 01/24/2021. No pancreatic mass lesion or calcification is evident. Normal morphology of the adrenal glands. No renal mass lesion or urinary tract calculus or hydroureteronephrosis. The urinary bladder is unrem arkable. Status post hysterectomy. Bilateral pelvic lymph node dissection There is atherosclerotic calcification but normal caliber of the abdominal aorta and iliac arteries. No intraperitoneal or retroperitoneal or pelvic mass lesion or adenopathy or ascites is detected. No bowel obstruction is evident. No evidence of appendicitis. Mild colonic diverticulosis; no evidenc e of diverticulitis. Left-sided pain pump is noted with catheter the lower thoracic spinal canal. 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 Osteopenia. IMPRESSION: Status post hysterectomy and bilateral pelvic lymph node resection; no recurrent mass or adenopathy is evident No significant change since 01/24/2021 Reviewed, dictated and finalized at [facility]. Reviewed, dictated and finalized at location [facility]. IMPRESSION: Status post hysterectomy and bilateral pelvic lymph node resection ; no recurrent mass or adenopathy is evident No significant change since 01/24/2021
--- NOTE | 2022-06-05 18:05 | ECG_ITS ---
Measurements Intervals [place] Rate: 107 P: 35 MO: 169 QRS: 4 QRSD: 81 T: 52 QT: 328 QTc: 439 Interpretive Statements SINUS TACHYCARDIA ABNORMAL RHYTHM ECG NO PREVIOUS ECG AVAILABLE FOR COMPARISON Electronically Signed On 06-06-2022 16:00:55 CDT by Mini Gonzalez M.D.
[2022-06-05 18:32] LABS: Basophils Percent Auto 0.1 % (0.2-1.2); Eosinophils Percent Auto 0.6 % (0-4.4); Hematocrit 41.7 % (37.0-47.0); Hemoglobin 13.7 g/dL (12.0-15.0); Immature Granulocyte Absolute 0.03 K/mm3 (0.00-0.031); Immature Granulocyte Percent A 0.4 % (0-0.5); Lymphocytes Absolute Auto 1.48 K/mm3 (0.9-3.2); Lymphocytes Percent Auto 21.9 % (18.3-44.2); Mean Corpuscular HGB Conc 32.9 g/dl (32-36); Mean Corpuscular Hemoglobin 29.2 pg (26-34); Mean Corpuscular Volume 88.9 fl (80-100); Mean Platelet Volume 11.2 fl (7.4-10.4); Monocytes Absolute Auto 0.6 K/mm3 (0.1-0.6); Monocytes Percent Auto 8.3 % (2.6-8.5); Neutrophils Absolute Auto 4.6 K/mm3 (1.3-6.7); Neutrophils Percent Auto 68.7 % (45.5-73.1); Platelet Count Result 218 k/mm3 (150-375); Red Blood Count 4.69 M/mm3 (4.2-5.4); Red Cell Distribution Width 14.7 % (11.5-14.5); White Blood Count 6.8 K/mm3 (4.5-10.0)
[2022-06-05 18:46] LABS: Alanine Aminotransferase 24 U/L (6-35); Albumin Level 4.2 g/dL (3.5-5.1); Alkaline Phosphatase 116 U/L (38-126); Anion Gap 15 mmol/L (8-16); Aspartate Amino Transferase 23 U/L (14-36); Bilirubin,Total 0.8 mg/dL (0.2-1.3); Blood Urea Nitrogen 10 mg/dL (7-17); Calcium 8.9 mg/dL (8.4-10.2); Carbon Dioxide 25 mmol/L (22-30); Chloride 102 mmol/L (98-107); Estimated Glomerular Filt Rate > 60; Glucose 256 mg/dL (65-110); Lipase 101 U/L (23-300); Potassium 4.2 mmol/L (3.4-5.0); Sodium 142 mmol/L (137-145)
[2022-06-05 19:15] VITALS: BP 147/72; PULSE 87; RESP 18; TEMP 36.6; O2SAT 94
[2022-06-05 19:45] LABS: Add Urine Microscopic? YES; Appearance Urine Cloudy (Clear); Bacteria Urine Trace /hpf; Bilirubin Urine Negative (Negative); Color Urine Yellow (Yellow); Glucose Urine UA Negative (Negative); Ketones Urine Trace mg/dL (Negative); Leukocyte Esterase Ur 3+ LEU/UL (Negative); Mucus Urine Few /lpf; Nitrate Urine Negative (Negative); Protein Urine Negative (Negative); Specific Grav Ur 1.019 (1.001-1.035); Squamous Epithelial Cell Urine Few /hpf (Few); WBC Urine 31-50 /hpf
[2022-06-05 19:48] LABS: Blood Urine Negative (Negative)
[2022-06-05 20:24] VITALS: BP 135/60; PULSE 99; RESP 14; O2SAT 97
--- NOTE | 2022-06-05 20:43 | PC.NURSE ---
pt. to ct
--- NOTE | 2022-06-05 20:53 | ED.GENADULT ---
HPI - General Adult General Chief complaint: Abdominal Pain Stated complaint: abd pain since 06/02 Time Seen by Provider: 06/05/22 20:18 History of Present Illness HPI narrative: Patient is a 76-year-old female who presents the emergency department with chief complaint of abdominal pain. Patient reports that she has had chronic abdominal pain for the last a year and a half and reports that she has seen both her primary care provider and GI has had endoscopy done and reports that she has had intermittent flareups the patient states that she was seen in [facility] facility approximately 11 months ago for a similar episode the patient states over the last several days she has been having increasing abdominal discomfort reports that she has had some nausea and fullness throughout her abdomen. Patient reports that she has chronically loose stool but does take MiraLAX every day. The patient states that she had no fevers reports that she has not actually vomited through this. Related Data Home Medications Medication Instructions Recorded Confirmed diltiazem HCl 240 mg capsule,24 240 mg PO DAILY 07/22/19 07/04/21 hr,extended release (Tiazac) vit C 250 mg-vit E 90 mg-zinc 40 1 tablet PO BID 07/22/19 06/15/21 mg-copper 1 [id number]-clvdff capsule (PreserVision AREDS-2) pantoprazole 40 mg tablet,delayed 40 mg PO BID 02/19/20 07/04/21 release atorvastatin 80 mg tablet (Lipitor) 80 mg PO DAILY 12/21/20 06/15/21 levothyroxine 25 mcg tablet 25 mcg PO DAILY 12/21/20 07/04/21 (Synthroid) metformin 500 mg tablet,extended 500 mg PO DAILY 05/09/21 06/15/21 release 24 hr Allergies Allergy/AdvReac Type Severity Reaction Status Date / Time amitriptyline Allergy Mild RECTAL Verified 06/05/22 19:15 BLEEDING cortisone Allergy Mild Swelling Verified 06/05/22 19:15 Corticosteroids Allergy Unknown Swelling Verified 06/05/22 19:15 (Glucocorticoids) duloxetine Allergy Unknown Unknown Verified 06/05/22 19:15 fluticasone Allergy Unknown Unknown Verified 06/05/22 19:15 Penicillins Allergy Unknown Unknown Verified 06/05/22 19:15 aluminum hydroxide Allergy Diarrhea Verified 06/05/22 19:15 [From Mylanta] calcium carbonate Allergy Diarrhea Verified 06/05/22 19:15 [From Mylanta] magnesium [From Mylanta] Allergy Diarrhea Verified 06/05/22 19:15 magnesium hydroxide Allergy Diarrhea Verified 06/05/22 19:15 [From Mylanta] simethicone [From Mylanta] Allergy Diarrhea Verified 07/04/21 13:03 FLUTICASONE FUROATE Allergy Unknown TONGUE Uncoded 07/04/21 13:03 SWELLING Review of Systems Review of Systems: A 10 system review of systems was completed on the patient and is negative except for what is stated in the HPI. Nursing and ancillary documentation was reviewed. [facility] Past Medical History Medical History Arthritis Back pain Cervical cancer COPD (chronic obstructive pulmonary disease) Diabetes Gastroparesis GERD (gastroesophageal reflux disease) Hiatal hernia Hyperlipidemia Hypertension Hypothyroidism Type 2 diabetes mellitus Surgical History Surgical History H/O hemorrhoidectomy H/O: hysterectomy Family History Family History Father Diabetes mellitus Sibling Family history of cardiovascular disease Family history of liver disease Mother Carcinoma of colon Social History Social History Smoking packs per day: 1 Smoking cigarettes per day: 20.0 Years smoked: 10 Smoking pack-years: 10.00 Smoking status: Former smoker Tobacco type: cigarettes Second hand tobacco smoke exposure: No Smoking end date: 08/13/94 Alcohol intake: current Alcohol use details: very rarely Substance use: never Substance use type: does not use Gender iden
[2022-06-05] MEDS: ONDANSETRON INJ 4 MG/2 ML VIAL IV PUSH (21:00)
[2022-06-05] MEDS: SODIUM CHLORIDE 0.9% IV 1,000 ML 999 ML IV CONT (21:00)
[2022-06-05] MEDS: DICYCLOMINE HCL INJ 20 MG/2 ML VIAL IM (21:01)
[2022-06-05 21:26] LABS: Lactic Acid Reflex 1.2 mmol/L (0.7-2.0); Lipase 81 U/L (23-300); Magnesium 1.8 mg/dL (1.6-2.3)
[2022-06-05 22:15] VITALS: BP 130/87; PULSE 77; RESP 19; O2SAT 99
[2022-06-05] MEDS: SULFAMETHOXAZOLE/TRIMETHOPRIM 800/160 MG DS TABLET 1 TAB PO (22:40)
[2022-06-05] MEDS: HYDROcodone/acetaminophen (*CRX) 5-325 MG TABLET 1 TAB PO (22:40)
== END 2022-06-05 22:40 | disposition home or self-care (01) ==
PROVIDERS: Emergency Medicine; Emergency Provider Emergency Medicine; PCP Student in an Organized Health Care Education/Training Program
DX: N39.0 Urinary tract infection, site not specified (principal); R10.84 Generalized abdominal pain; G89.29 Other chronic pain; J44.9 Chronic obstructive pulmonary disease, unspecified; E11.43 Type 2 diabetes mellitus with diabetic autonomic (poly)neuropathy; K31.84 Gastroparesis; E78.5 Hyperlipidemia, unspecified; K44.9 Diaphragmatic hernia without obstruction or gangrene; I10 Essential (primary) hypertension; E03.9 Hypothyroidism, unspecified; K21.9 Gastro-esophageal reflux disease without esophagitis; M19.90 Unspecified osteoarthritis, unspecified site; Z90.710 Acquired absence of both cervix and uterus; Z87.891 Personal history of nicotine dependence; Z79.84 Long term (current) use of oral hypoglycemic drugs
CPT/HCPCS: 36415; 74177; 80053; 81001; 83605; 83690; 83735; 85025; 87086; 93005; 96361; 96372; 96374; 99284; A9270; J0500; J2405; J7030; Q9967

== ENCOUNTER 2022-06-10 21:08 | Inpatient (IN) | payer MEDICARE, SELFPAY ==
--- NOTE | ~2022-06-10 | CT_ITS ---
EXAMINATION: CT abdomen pelvis w con DATE: 06/11/2022 01:32 INDICATION: Abdominal pain and nausea TECHNIQUE: Computed tomography (CT) of the abdomen and pelvis was performed without intravenous contr ast. The dose-length product was 647.25 mGy-cm. Automated exposure control and iterative reconstructi on technique were employed. COMPARISON: 06/05/2022 The liver, spleen, pancreas, adrenal glands and kidneys are otherwise unremarkable. Small hiatal thomas ia. No significant pleural or pericardial effusion. Nonobstructive bowel gas pattern. Colonic diverti culosis without evidence for diverticulitis. No free air or free fluid. There is moderate lower thora cic and lumbar spondylosis. FINDINGS: Heart size is normal. No significant pleural or pericardial effusion. There is atherosclero sis of the aorta. No aneurysm. Gallbladder is distended. Mild dilation of the common bile duct. Pancr eatic duct is mildly dilated. These findings are similar to the prior examination. IMPRESSION: 1. Moderately distended gallbladder with dilation of the common bile duct and pancreatic duct. Appear ance similar to prior CT examination. Consider cholecystitis in the appropriate clinical setting. Reviewed, dictated and finalized at location [facility]. IMPRESSION: 1. Moderately distended gallbladder with dilation of the common bile duct and p ancreatic duct. Appearance similar to prior CT examination. Consider cholecysti tis in the appropriate clinical setting.
--- NOTE | ~2022-06-10 | XR_ITS ---
EXAMINATION: XR cholangiogram surg 1st inj DATE: 06/13/2022 07:18 INDICATION: Cholelithiasis. TECHNIQUE: 109 fluoroscopic images of the right upper quadrant were obtained during intraoperative ch olangiography performed by the surgeon. I was not present in the operating room. Fluoroscopy exposure time was 18 seconds. COMPARISON: CT abdomen and pelvis 06/11/2022 FINDINGS: There is a catheter in the gallbladder neck. Contrast passes to the duodenum. The common du ct is mildly dilated. IMPRESSION: 1. Mildly dilated common duct. No choledocholithiasis. Reviewed, dictated and finalized at location [facility].
--- NOTE | ~2022-06-10 | US_ITS ---
US abdomen limited INDICATION: Right upper quadrant pain. PROCEDURE: Realtime right upper abdominal ultrasound. COMPARISON: No prior studies for comparison. FINDINGS: Pancreas is not well visualized due to bowel gas. Liver echotexture is normal without foca l mass or intrahepatic biliary dilatation. There is normal directional flow in the portal vein. There is gallbladder sludge. No definite gallstones or gallbladder wall thickening. Common bile duct measures 6 mm. No sonographic Urban's sign. IMPRESSION: 1: Gallbladder sludge. Reviewed, dictated and finalized at location A. IMPRESSION: 1: Gallbladder sludge.
[2022-06-10 21:25] VITALS: BP 119/84; PULSE 93; RESP 17; TEMP 36.6; O2SAT 97
[2022-06-10 21:51] LABS: Basophils Percent Auto 0.3 % (0.2-1.2); Eosinophils Percent Auto 0.3 % (0-4.4); Hematocrit 41.3 % (37.0-47.0); Hemoglobin 13.5 g/dL (12.0-15.0); Immature Granulocyte Absolute 0.04 K/mm3 (0.00-0.031); Immature Granulocyte Percent A 0.6 % (0-0.5); Lymphocytes Absolute Auto 1.04 K/mm3 (0.9-3.2); Mean Corpuscular HGB Conc 32.7 g/dl (32-36); Mean Corpuscular Volume 88.6 fl (80-100); Mean Platelet Volume 10.5 fl (7.4-10.4); Monocytes Absolute Auto 0.6 K/mm3 (0.1-0.6); Monocytes Percent Auto 8.5 % (2.6-8.5); Neutrophils Absolute Auto 4.8 K/mm3 (1.3-6.7); Neutrophils Percent Auto 74.3 % (45.5-73.1); Platelet Count Result 254 k/mm3 (150-375); Red Blood Count 4.66 M/mm3 (4.2-5.4); Red Cell Distribution Width 14.6 % (11.5-14.5); White Blood Count 6.5 K/mm3 (4.5-10.0)
[2022-06-10 21:55] VITALS: BP 160/66; PULSE 82; RESP 18; O2SAT 94
[2022-06-10 21:57] LABS: Appearance Urine Slightly Cloudy (Clear); Bilirubin Urine Negative (Negative); Blood Urine Negative (Negative); Color Urine Yellow (Yellow); Glucose Urine UA Negative (Negative); Ketones Urine 1+ mg/dL (Negative); Leukocyte Esterase Ur Trace LEU/UL (Negative); Nitrate Urine Negative (Negative); Protein Urine Trace mg/dL (Negative); Urobilinogen Urine 0.2 mg/dL (<2.0); pH Urine 8.5 (5.0-9.0)
[2022-06-10 22:00] LABS: Alanine Aminotransferase 21 U/L (6-35); Albumin Level 4.4 g/dL (3.5-5.1); Alkaline Phosphatase 124 U/L (38-126); Anion Gap 13 mmol/L (8-16); Aspartate Amino Transferase 22 U/L (14-36); Bilirubin,Total 0.7 mg/dL (0.2-1.3); Blood Urea Nitrogen 11 mg/dL (7-17); Calcium 9.2 mg/dL (8.4-10.2); Carbon Dioxide 25 mmol/L (22-30); Chloride 102 mmol/L (98-107); Estimated CRCL calculation 40 ml/min; Estimated Glomerular Filt Rate 54; Glucose 126 mg/dL (65-110); Lipase 131 U/L (23-300); Potassium 4.5 mmol/L (3.4-5.0); Sodium 140 mmol/L (137-145)
[2022-06-10 22:04] LABS: Bacteria Urine Trace /hpf; Mucus Urine Rare /lpf; Squamous Epithelial Cell Urine Occasional /hpf (Few)
[2022-06-10 22:06] LABS: Add Urine Microscopic? YES
--- NOTE | 2022-06-10 22:08 | ED.ABDPAIN ---
HPI - Abdominal Pain General Chief Complaint: Abdominal Pain Stated Complaint: upper abd pain Time Seen by Provider: 06/10/22 21:51 Source: patient Mode of arrival: ambulatory Limitations: no limitations History of Present Illness HPI narrative: This is a 76 year old female that presents to the ER for abdominal pain ongoing over the last week. Reports a constant stabbing epigastric abdominal pain. She was evaluated in the ER for this earlier in the week and found to have a UTI. Reports her discomfort has persisted which prompted her to be seen again. Associated with nausea and decreased appetite. Denies fever, vomiting, diarrhea, dysuria or hematuria. Related Data Home Medications Medication Instructions Recorded Confirmed diltiazem HCl 240 mg capsule,24 240 mg PO DAILY 07/22/19 07/04/21 hr,extended release (Tiazac) vit C 250 mg-vit E 90 mg-zinc 40 1 tablet PO BID 07/22/19 06/15/21 mg-copper 1 [id number]-mznktm capsule (PreserVision AREDS-2) pantoprazole 40 mg tablet,delayed 40 mg PO BID 02/19/20 07/04/21 release atorvastatin 80 mg tablet (Lipitor) 80 mg PO DAILY 12/21/20 06/15/21 levothyroxine 25 mcg tablet 25 mcg PO DAILY 12/21/20 07/04/21 (Synthroid) metformin 500 mg tablet,extended 500 mg PO DAILY 05/09/21 06/15/21 release 24 hr Allergies Allergy/AdvReac Type Severity Reaction Status Date / Time amitriptyline Allergy Mild RECTAL Verified 06/10/22 21:24 BLEEDING cortisone Allergy Mild Swelling Verified 06/10/22 21:24 Corticosteroids Allergy Unknown Swelling Verified 06/10/22 21:24 (Glucocorticoids) duloxetine Allergy Unknown Unknown Verified 06/10/22 21:24 fluticasone Allergy Unknown Unknown Verified 06/10/22 21:24 Penicillins Allergy Unknown Unknown Verified 06/10/22 21:24 aluminum hydroxide Allergy Diarrhea Verified 06/10/22 21:24 [From Mylanta] calcium carbonate Allergy Diarrhea Verified 06/10/22 21:24 [From Mylanta] magnesium [From Mylanta] Allergy Diarrhea Verified 06/10/22 21:24 magnesium hydroxide Allergy Diarrhea Verified 06/10/22 21:24 [From Mylanta] simethicone [From Mylanta] Allergy Diarrhea Verified 06/10/22 21:24 FLUTICASONE FUROATE Allergy Unknown TONGUE Uncoded 07/04/21 13:03 SWELLING Review of Systems Review of Systems: CONSTITUTIONAL: Denies fever GASTROINTESTINAL: Reports abdominal pain, nausea. Denies vomiting, or diarrhea. GENITOURINARY: Denies dysuria or hematuria. All systems reviewed & are unremarkable except as noted in HPI and below PMFSH Past Medical History Medical History Arthritis Back pain Cervical cancer COPD (chronic obstructive pulmonary disease) Diabetes Gastroparesis GERD (gastroesophageal reflux disease) Hiatal hernia Hyperlipidemia Hypertension Hypothyroidism Type 2 diabetes mellitus Surgical History Surgical History H/O hemorrhoidectomy H/O: hysterectomy Family History Family History Father Diabetes mellitus Sibling Family history of cardiovascular disease Family history of liver disease Mother Carcinoma of colon Social History Social History Smoking packs per day: 1 Smoking cigarettes per day: 20.0 Years smoked: 10 Smoking pack-years: 10.00 Smoking status: Former smoker Tobacco type: cigarettes Second hand tobacco smoke exposure: No Smoking end date: 08/13/94 Alcohol intake: current Alcohol use details: very rarely Substance use: never Substance use type: does not use Gender identity (if verbalized by the patient): Female Spiritual care concerns: No Exam Narrative: GENERAL: Well-appearing, well-nourished, and in no acute distress. HEAD: Normocephalic, atraumatic. EYES: EOMI. CHEST: Clear to auscultation. No respiratory d
[2022-06-10] MEDS: ONDANSETRON INJ 4 MG/2 ML VIAL IV PUSH (22:16)
[2022-06-10] MEDS: DICYCLOMINE HCL INJ 20 MG/2 ML VIAL IM (22:16)
[2022-06-10] MEDS: SODIUM CHLORIDE 0.9% IV 500 ML 999 ML IV CONT (22:17)
[2022-06-11] MEDS: MORPHINE SULFATE (*CRX) 2 MG/ML INJ IV PUSH (01:12)
[2022-06-11] MEDS: FAMOTIDINE 20 MG/2 ML VIAL IV PUSH (01:30)
[2022-06-11] MEDS: SODIUM CHLORIDE 0.9% IV 500 ML 999 ML IV CONT (01:30)
--- NOTE | 2022-06-11 03:20 | PM.IMHP ---
H&P: HPI History of Present Illness Date/Time: 06/11/22 03:20 Chief Complaint: N/V Narrative: This is a 76-year-old female with past medical history significant for hypothyroidism, type 2 diabetes mellitus, gastroesophageal reflux disease, dyslipidemia, gastroparesis, Hiatal hernia. patient presents to the emergency room due to nausea vomiting and abdominal pain for several days she was seen and evaluated earlier during the week and was sent home with treatment for urinary tract infection however patient returns today due to intractable nausea vomiting and abdominal pain ongoing and worsening for the last 3 days or so has not been able to eat anything or keep anything down, denies any fevers, rigors, chills, cough, sputum production, hematemesis, bright red blood per rectum, coffee-ground emesis, melena. abdominal pain is localized to the right upper quadrant ,patient rated at 10/10 it is constant and colicky. Preliminary workup was significant for a CT of abdomen and pelvis preliminary reading was reported as distended gallbladder. Review of Systems Review of Systems: Nausea, vomiting, abdominal pain. Constitutional: Constitutional: Denies chills, Denies fever(s), Denies night sweats and Reports poor appetite Eyes: Eyes: Denies change in vision ENT: Denies dysphagia, Denies vertigo, Denies dizziness and Denies odynophagia Cardiovascular: Cardiovascular: Denies chest pain, Denies irregular heart rhythm, Denies leg edema and Denies dyspnea on exertion Respiratory: Respiratory: Denies cough Gastrointestinal: Gastrointestinal: Reports abdominal pain, Denies melena, Denies hematochezia, Denies coffee ground emesis, Denies dyspepsia, Denies heartburn, Denies diarrhea, Reports nausea and Reports vomiting Genitourinary: Genitourinary: Denies dysuria Musculoskeletal: Musculoskeletal: Denies limited range of motion Integumentary/Breasts: Skin/Breast: Denies rash Neurologic: Denies vertigo, Denies dizziness, Denies focal weakness and Denies Sensory deficit (Neuro) Psychiatric: Psychiatric: Reports no additional psychiatric complaints and Reports as per HPI Endocrine: Endocrine: Denies cold intolerance, Denies flushing, Denies heat intolerance, Denies polyphagia, Denies polydipsia and Denies palpitations Hematologic/Lymphatic: Hematologic/Lymphatic: Reports no additional hematologic/lymphatic complaints and Reports as per HPI Allergic/Immunologic: Allergic/Immunologic: Reports no additional allergic/immunologic complaints and Reports as per HPI [facility] Past Medical History Medical History (Updated 06/11/22 @ 03:57 by Jose Curran MD) Arthritis Back pain Cervical cancer COPD (chronic obstructive pulmonary disease) Diabetes Gastroparesis GERD (gastroesophageal reflux disease) Hiatal hernia Hyperlipidemia Hypertension Hypothyroidism Type 2 diabetes mellitus Surgical History Surgical History H/O hemorrhoidectomy H/O: hysterectomy Family History Family History Father Diabetes mellitus Sibling Family history of cardiovascular disease Family history of liver disease Mother Carcinoma of colon Social History Social History Smoking packs per day: 1 Smoking cigarettes per day: 20.0 Years smoked: 10 Smoking pack-years: 10.00 Smoking status: Former smoker Tobacco type: cigarettes Second hand tobacco smoke exposure: No Smoking end date: 08/13/94 Alcohol intake: current Alcohol use details: very rarely Substance use: never Substance use type: does not use Gender identity (if verbalized by the patient): Female Spiritual care concerns: No Meds Home Medications and Allergies Home Medications Medication Instructions Recorded Confirmed Type diltiazem HCl 240 mg capsule,24 240 mg PO DAILY 1
[2022-06-11 03:28] VITALS: BMI 28.9
--- NOTE | 2022-06-11 04:07 | ADMGEN ---
This patient, Khushbu Avina, was admitted to 2 Medical Room 241-. Patient/family oriented to hospital policies and general routines including ID bracelet, bed and alarms, visiting hours, pain management, procedures, bathroom and other care routines, personal items, smoking policy, room service/diet, and visiting hours. Information on how to activate the Rapid Response Team has been discussed. Patient/Family are encouraged to report perceived risks to care and to ask questions if they do not understand what they are told or what they should do.
[2022-06-11] MEDS: SODIUM CHLORIDE 0.9% IV 1,000 ML 100 ML IV CONT ×3 (04:18→23:03)
[2022-06-11 04:26] VITALS: BMI 28.9
[2022-06-11 04:31] LABS: Glucose Point of Care 103 mg/dl (65-105)
[2022-06-11 06:00] VITALS: BP 137/64; PULSE 71; RESP 16; TEMP 36.4; O2SAT 94
[2022-06-11] MEDS: LEVOTHYROXINE SODIUM 25 MCG TABLET PO (06:03)
[2022-06-11 08:25] LABS: Glucose Point of Care 104 mg/dl (65-105)
--- NOTE | 2022-06-11 09:01 | PC.NURSE ---
pt NPO for abd US today, will administer a.m meds following scan
[2022-06-11] MEDS: HYDROmorphone HCL INJ (*CRX) 1 MG/ML SYR 0.5 MG IV PUSH (11:32)
[2022-06-11 12:24] LABS: Glucose Point of Care 94 mg/dl (65-105)
--- NOTE | 2022-06-11 13:57 | PM.CNGS ---
Assessment and Plan Assessment and plan (1) Right upper quadrant pain: Code(s): R10.11 - Right upper quadrant pain Status: Acute Assessment and Plan: I have reviewed the CT and discussed the findings with the patient. She does have evidence of a distended gallbladder but does not have any signs of cholelithiasis or cholecystitis. Her ultrasound did show gallbladder sludge. She continues to have pain and has not identified any particular triggers where she can avoid with dietary modifications. I discussed with her options of trying medical management with colestipol. Also discussed options of proceeding with laparoscopic cholecystectomy with intraoperative cholangiogram. Patient states that with her symptoms persisting as long as they have, she would like to proceed with surgery. I have recommended proceeding with laparoscopic cholecystectomy with intraoperative cholangiogram, possible open. Will repeat labs tomorrow morning in anticipation for surgery. I have discussed the procedure, risks, benefits, and alternatives. Questions were answered. (2) Gallbladder sludge: Code(s): K82.8 - Other specified diseases of gallbladder Status: Acute (3) Abnormal findings on imaging of biliary tract: Code(s): R93.2 - Abnormal findings on diagnostic imaging of liver and biliary tract Status: Acute (4) COPD (chronic obstructive pulmonary disease): Code(s): J44.9 - Chronic obstructive pulmonary disease, unspecified Status: Acute History of Present Illness Consult details Consult date: 06/11/22 Reason for consult: other ( Possible cholecystitis) Narrative: this is a 76-year-old woman who I am asked to see for right upper quadrant abdominal pain and possible cholecystitis. She has been experiencing symptoms on and off for the past year. She has had prior workup over the past [address], HIDA scan, and gastric emptying study. Patient has tried modifying her diet and cannot identify any certain things that are causing her pain. She denies any changes in bowel habits and her symptoms do not improve after having a bowel movement. She denies any fevers or chills. She presented to the emergency department last night with worsening pain. Labs were all essentially normal. She did have a CT which showed evidence of a distended gallbladder and dilated common bile duct. She was then admitted for further treatment due to intractable pain. A gallbladder ultrasound this morning did show gallbladder sludge but no other concerning findings. Patient is still in pain when I evaluated her in her room today. Review of Systems Review of Systems: All systems reviewed & are unremarkable except as noted in HPI and below Constitutional: Constitutional: Denies chills and Denies fever(s) Eyes: Eyes: Denies change in vision ENT: Denies hearing loss, Denies neck pain and Denies sore throat Cardiovascular: Cardiovascular: Denies chest pain and Denies dyspnea Respiratory: Respiratory: Denies cough, Denies dyspnea and Denies wheezing Genitourinary: Genitourinary: Denies hematuria and Denies dysuria Musculoskeletal: Musculoskeletal: Denies arthralgias, Denies joint swelling and Denies neck pain Allergic/Immunologic: Allergic/Immunologic: Denies wheezing [facility] Past Medical History Medical History Arthritis Back pain Cervical cancer COPD (chronic obstructive pulmonary disease) Diabetes Gastroparesis GERD (gastroesophageal reflux disease) Hiatal hernia Hyperlipidemia Hypertension Hypothyroidism Type 2 diabetes mellitus Surgical History Surgical History H/O hemorrhoidectomy H/O: hysterectomy Family History Family History Father Diabetes mellitus Sibling Family history of cardiovascular disease Family history of liver di
[2022-06-11 14:00] VITALS: BP 159/70; PULSE 76; RESP 20; TEMP 36.5; O2SAT 95
[2022-06-11] MEDS: PANTOPRAZOLE 40 MG TABLET PO ×2 (14:29→17:41)
--- NOTE | 2022-06-11 14:29 | PM.IMPN ---
Progress Note: A&P Assessment and Plan (1) Right upper quadrant pain: Code(s): R10.11 - Right upper quadrant pain Status: Acute Assessment and Plan: Patient complains of ongoing right upper quadrant/epigastric discomfort. CT of the abdomen/pelvis shows moderately distended gallbladder with dilation of the common bile duct and pancreatic duct. Follow-up right upper quadrant ultrasound shows gallbladder sludge. Lipase, bilirubin, LFTs within normal limits. Patient has been seen in consultation by Gastroenterology and has opted for laparoscopic cholecystectomy. Continue with clear liquid diet today, NPO at midnight in anticipation of surgery. Supportive care. Analgesics and antiemetics available as needed (2) Gallbladder sludge: Code(s): K82.8 - Other specified diseases of gallbladder Status: Acute Assessment and Plan: See plan above (3) Nausea and vomiting: Code(s): R11.2 - Nausea with vomiting, unspecified Status: Acute Assessment and Plan: Patient presented with persistent nausea and vomiting. Likely due to gallbladder sludge. Vomiting has now resolved however patient still endorses nausea. Continue antiemetics as needed. Clear liquid diet (4) GERD (gastroesophageal reflux disease): Code(s): K21.9 - Gastro-esophageal reflux disease without esophagitis Status: Chronic Assessment and Plan: No acute issues. Continue Protonix 40 mg b.i.d. (5) Type 2 diabetes mellitus: Code(s): E11.9 - Type 2 diabetes mellitus without complications Status: Acute Assessment and Plan: Blood sugars have been well controlled. Home metformin is on hold. Begin Accu-Cheks, low dose sliding scale insulin, and hypoglycemic protocol (6) Hypertension: Code(s): I10 - Essential (primary) hypertension Status: Acute Assessment and Plan: Blood pressures reviewed and have been reasonably controlled. Continue home diltiazem. Monitor BP trends Subjective Date/time seen: 06/11/22 14:29 Interval history: Date of service: 06/11/2022 Khushbu Avina is 76-year-old female with a history of COPD, cervical cancer, type 2 diabetes mellitus, gastroparesis, hypertension, hyperlipidemia, hypothyroidism who is seen in follow-up for biliary colic. Patient states symptoms have been going on since August 2021. She has had intermittent epigastric pain since that time. Reports she has gone through multiple tests (not able to recall what diagnostic evaluation she has had) with no answers. Earlier this week, she developed a very severe squeezing abdominal pain that has not improved. Today she endorses 7/10 epigastric discomfort. States her last true bowel movement was 1 week ago. Yesterday she felt she needed to pass gas and did pass a very small stool. She endorses nausea but no vomiting. She has had belching. She denies symptoms of acid reflux. Denies fevers or chills. She has been able to tolerate liquids but has had a very decreased appetite. States that eating does not worsen her symptoms and she cannot find any specific trigger for her symptoms. She does feel weak. She endorses urinary hesitancy, which is been an ongoing issue for her. She denies dysuria or hematuria. Review of Systems Review of Systems: All systems reviewed & are unremarkable except as noted in HPI and below Exam Narrative: General: Well-nourished, well-appearing 76-year-old female, sitting up in bed, comfortable, NARD Neuro: awake, alert and oriented x4, speech clear, no focal neuro deficits noted HEENMT: normocephalic, atraumatic, EOMI, sclerae anicteric Respiratory: clear to auscultation bilaterally, nonlabored breathing Cardio: regular rate, regular rhythm with S1-S2 Abdomen: nondistended, normoactive bowel sounds, soft, tender to palpation in epigastric region, Urban sign negative Extremities: no edema, erythema, or tenderness to palpation, D
[2022-06-11] MEDS: HYDROmorphone HCL INJ (*CRX) 1 MG/ML SYR IV PUSH (14:30)
[2022-06-11 17:23] LABS: Glucose Point of Care 118 mg/dl (65-105)
[2022-06-11 19:54] LABS: Glucose Point of Care 146 mg/dl (65-105)
[2022-06-11 21:39] VITALS: BP 143/74; PULSE 73; RESP 16; TEMP 36.1; O2SAT 94
[2022-06-12] VITALS (11 sets, daily range): BP systolic 115–158; BP diastolic 42–92; PULSE 60–89; RESP 16–22; TEMP 36.3–36.9; O2SAT 88–99; BMI 28.9
[2022-06-12] MEDS: CHLORHEXIDINE GLUCONATE 4% SOL 120 ML BTL 1 APPLIC TOPICAL (01:07)
[2022-06-12] MEDS: HYDROmorphone HCL INJ (*CRX) 1 MG/ML SYR IV PUSH ×3 (01:07→17:19)
[2022-06-12 06:43] LABS: Basophils Percent Auto 0.2 % (0.2-1.2); Eosinophils Absolute Auto 0.2 K/mm3 (0-0.3); Eosinophils Percent Auto 1.9 % (0-4.4); Hematocrit 42.8 % (37.0-47.0); Hemoglobin 13.8 g/dL (12.0-15.0); Immature Granulocyte Absolute 0.04 K/mm3 (0.00-0.031); Immature Granulocyte Percent A 0.5 % (0-0.5); Lymphocytes Absolute Auto 2.77 K/mm3 (0.9-3.2); Lymphocytes Percent Auto 33.2 % (18.3-44.2); Mean Corpuscular HGB Conc 32.2 g/dl (32-36); Mean Corpuscular Hemoglobin 29.3 pg (26-34); Mean Corpuscular Volume 90.9 fl (80-100); Monocytes Absolute Auto 0.8 K/mm3 (0.1-0.6); Monocytes Percent Auto 9.1 % (2.6-8.5); Neutrophils Absolute Auto 4.6 K/mm3 (1.3-6.7); Neutrophils Percent Auto 55.1 % (45.5-73.1); Platelet Count Result 271 k/mm3 (150-375); Red Blood Count 4.71 M/mm3 (4.2-5.4); Red Cell Distribution Width 14.6 % (11.5-14.5); White Blood Count 8.4 K/mm3 (4.5-10.0)
[2022-06-12 06:53] LABS: Alanine Aminotransferase 21 U/L (6-35); Albumin Level 4.1 g/dL (3.5-5.1); Alkaline Phosphatase 120 U/L (38-126); Anion Gap 14 mmol/L (8-16); Aspartate Amino Transferase 24 U/L (14-36); Bilirubin,Total 0.7 mg/dL (0.2-1.3); Blood Urea Nitrogen 5 mg/dL (7-17); Calcium 9.2 mg/dL (8.4-10.2); Carbon Dioxide 23 mmol/L (22-30); Chloride 105 mmol/L (98-107); Estimated CRCL calculation 49 ml/min; Estimated Glomerular Filt Rate > 60; Glucose 91 mg/dL (65-110); Potassium 4.3 mmol/L (3.4-5.0); Sodium 142 mmol/L (137-145)
[2022-06-12 08:42] LABS: Glucose Point of Care 93 mg/dl (65-105)
[2022-06-12] MEDS: SODIUM CHLORIDE 0.9% IV 1,000 ML 100 ML IV CONT (09:41)
--- NOTE | 2022-06-12 12:02 | PM.IMPN ---
Progress Note: A&P Assessment and Plan (1) Right upper quadrant pain: Code(s): R10.11 - Right upper quadrant pain Status: Acute Assessment and Plan: Patient complains of ongoing right upper quadrant/epigastric discomfort. CT of the abdomen/pelvis showed moderately distended gallbladder with dilation of the common bile duct and pancreatic duct. Follow-up right upper quadrant ultrasound showed gallbladder sludge. Lipase, bilirubin, LFTs within normal limits. Patient has been seen in consultation by Gastroenterology and has opted for laparoscopic cholecystectomy. Surgery scheduled for this afternoon. Appreciate general surgery consultation. Continue with supportive care, analgesics antiemetics available as needed. (2) Gallbladder sludge: Code(s): K82.8 - Other specified diseases of gallbladder Status: Acute Assessment and Plan: See plan above (3) Nausea and vomiting: Code(s): R11.2 - Nausea with vomiting, unspecified Status: Acute Assessment and Plan: Patient presented with persistent nausea and vomiting. Likely due to gallbladder sludge. Continue antiemetics as needed. Awaiting laparoscopic cholecystectomy. (4) GERD (gastroesophageal reflux disease): Code(s): K21.9 - Gastro-esophageal reflux disease without esophagitis Status: Chronic Assessment and Plan: No acute issues. Continue Protonix 40 mg b.i.d. (5) Type 2 diabetes mellitus: Code(s): E11.9 - Type 2 diabetes mellitus without complications Status: Acute Assessment and Plan: Blood sugars have been well controlled. Home metformin is on hold. Continue Accu-Cheks, low dose sliding scale insulin, and hypoglycemic protocol (6) Hypertension: Code(s): I10 - Essential (primary) hypertension Status: Acute Assessment and Plan: Blood pressures reviewed and have been reasonably controlled. Continue home diltiazem. Monitor BP trends (7) Chronic back pain: Code(s): M54.9 - Dorsalgia, unspecified; G89.29 - Other chronic pain Status: Acute Assessment and Plan: patient with chronic back pain established with pain management. She has an active pain pump in place. Subjective Date/time seen: 06/12/22 12:02 Interval history: Date of service: 06/12/2022 Khushbu Avina is 76-year-old female with a history of COPD, cervical cancer, type 2 diabetes mellitus, gastroparesis, hypertension, hyperlipidemia, hypothyroidism who is seen in follow-up for gallbladder sludge. She is awaiting laparoscopic cholecystectomy later today. she endorses epigastric pain that she states is spreading more laterally towards the right upper quadrant. She denies nausea or vomiting. She has been NPO today for surgery. She is passing flatus but did not have a bowel movement yesterday or today. She denies any urinary symptoms. States she has been able to ambulate back and forth the bathroom without difficulties. Denies shortness breath, cough, chest pain. Review of Systems Review of Systems: All systems reviewed & are unremarkable except as noted in HPI and below Exam Narrative: General: Well-nourished, well-appearing 76-year-old female, sitting up in bed, comfortable, NARD Neuro: awake, alert and oriented x4, speech clear, no focal neuro deficits noted HEENMT: normocephalic, atraumatic, EOMI, sclerae anicteric Respiratory: clear to auscultation bilaterally, nonlabored breathing Cardio: regular rate, regular rhythm with S1-S2 Abdomen: nondistended, normoactive bowel sounds, soft, tender to palpation in epigastric region, Pain pump is palpable in left lower quadrant Extremities: no edema, erythema, or tenderness to palpation, DP pulses 2+ bilaterally Skin: no rashes or lesions, warm and dry Psych: appropriate mood and affect, judgment and insight intact Objective Data Vital Signs Vital Signs: Vital Signs - 24 hr 06/11/22 14:00 1
[2022-06-12 12:17] LABS: Glucose Point of Care 102 mg/dl (65-105)
--- NOTE | 2022-06-12 12:35 | PC.NURSE ---
pt to surgery via bed
--- NOTE | 2022-06-12 13:06 | WPDANESEPPF ---
Anes - Initial Pre Proc Eval Procedure: Operation Date: 06/12/22 14:00 Proposed Procedures p Laparoscopic Cholecystectomy; With Intraooperative Cholangiogram; Possible Open - Kirt Tello DO Date/Time: 06/12/22 13:06 Surgeon: Mili Nava PA-C Pre Op Diagnosis: biliary colic Patient Data Age: 76 Gender: F Height: 1.68 m Weight: 81.3 kg Last Vital Signs Temp 36.9 C 06/12/22 12:56 Pulse 74 06/12/22 12:56 Resp 16 06/12/22 12:56 BP 158/68 H 06/12/22 12:56 Pulse Ox 97 06/12/22 12:56 O2 Del Method Room Air 06/12/22 12:56 Allergies Allergy/AdvReac Type Severity Reaction Status Date / Time amitriptyline Allergy Mild RECTAL Verified 06/10/22 21:24 BLEEDING cortisone Allergy Mild Swelling Verified 06/10/22 21:24 Corticosteroids Allergy Unknown Swelling Verified 06/10/22 21:24 (Glucocorticoids) duloxetine Allergy Unknown Unknown Verified 06/10/22 21:24 fluticasone Allergy Unknown Unknown Verified 06/10/22 21:24 Penicillins Allergy Unknown Unknown Verified 06/10/22 21:24 aluminum hydroxide Allergy Diarrhea Verified 06/10/22 21:24 [From Mylanta] calcium carbonate Allergy Diarrhea Verified 06/10/22 21:24 [From Mylanta] magnesium [From Mylanta] Allergy Diarrhea Verified 06/10/22 21:24 magnesium hydroxide Allergy Diarrhea Verified 06/10/22 21:24 [From Mylanta] simethicone [From Mylanta] Allergy Diarrhea Verified 06/10/22 21:24 FLUTICASONE FUROATE Allergy Unknown TONGUE Uncoded 07/04/21 13:03 SWELLING Home Medications Medication Instructions Recorded Confirmed Type diltiazem HCl 240 mg capsule,24 240 mg PO DAILY 07/22/19 06/11/22 History hr,extended release (Tiazac) vit C 250 mg-vit E 90 mg-zinc 40 1 tablet PO BID 07/22/19 06/11/22 History mg-copper 1 [id number] capsule (PreserVision AREDS-2) pantoprazole 40 mg tablet,delayed 40 mg PO BID 02/19/20 06/11/22 History release atorvastatin 80 mg tablet (Lipitor) 80 mg PO DAILY 12/21/20 06/11/22 History levothyroxine 25 mcg tablet 25 mcg PO DAILY 12/21/20 06/11/22 History (Synthroid) metformin 500 mg tablet,extended 500 mg PO DAILY 05/09/21 06/11/22 History release 24 hr Laboratory Tests 06/11/22 06/11/22 06/12/22 17:14 19:50 05:48 WBC 8.4 K/mm3 K/mm3 (4.5-10.0) RBC 4.71 M/mm3 M/mm3 (4.2-5.4) Hgb 13.8 g/dL g/dL (12.0-15.0) Hct 42.8 % % (37.0-47.0) MCV 90.9 fl fl (80-100) MCH 29.3 pg pg (26-34) MCHC 32.2 g/dl g/dl (32-36) RDW 14.6 % H % (11.5-14.5) Plt Count 271 k/mm3 k/mm3 (150-375) MPV 11.0 fl H fl (7.4-10.4) Immature Gran % (Auto) 0.5 % % (0-0.5) Neut % (Auto) 55.1 % % (45.5-73.1) Lymph % (Auto) 33.2 % % (18.3-44.2) [place] % (Auto) 9.1 % H % (2.6-8.5) Eos % (Auto) 1.9 % % (0-4.4) Baso % (Auto) 0.2 % % (0.2-1.2) Lymph # (Auto) 2.77 K/mm3 K/mm3 (0.9-3.2) [place] # (Auto) 0.8 K/mm3 H K/mm3 (0.1-0.6) Eos # (Auto) 0.2 K/mm3 K/mm3 (0-0.3) Baso # (Auto) 0.0 K/mm3 K/mm3 (0.0-0.1) Abs Immat Gran (auto) 0.04 K/mm3 H K/mm3 (0.00-0.031) Absolute Neuts (auto) 4.6 K/mm3 K/mm3 (1.3-6.7) Absolute Nucleated RBC 0.0 K/mm3 K/mm3 (0.0-0.012) Nucleated RBC % 0.0 % % (0.0-0.2) Sodium Potassium Chloride Carbon Dioxide Anion Gap BUN Creatinine Estim Creat Clear Calc Estimated GFR Glucose POC Capillary Glucose 118 mg/dl H mg/dl 146 mg/dl H mg/dl (65-105) (65-105) Calcium Total Bilirubin AST ALT Alkaline Phosphatase Total Protein Albumin 06/12/22 06/12/22 06/12/22 05:48 08:28 12:13 WBC
[2022-06-12] MEDS: LACTATED RINGERS 1,000 ML 30 ML IV CONT ×2 (13:19→16:11)
--- NOTE | 2022-06-12 14:38 | WPDHPUPDATE1 ---
History and Physical Update Update Date/Time: 06/12/22 14:38 History and Physical has been reviewed, including an updated exam of the patient. There are NO changes in the patient's condition. Risks, benefits, and alternatives have been discussed and questions answered. Patient agrees to proceed with procedure.
[2022-06-12] MEDS: ceFAZolin 2 GM/D5W 50 ML 2 GM/50 ML BAG IVPB (15:09)
[2022-06-12] MEDS: BUPIVACAINE/EPINEPHRINE 0.25% 50 ML VIAL INFILTRATE (15:16)
[2022-06-12 16:27] LABS: Glucose Point of Care 188 mg/dl (65-105)
--- NOTE | 2022-06-12 16:35 | W.PM.PROC2 ---
Procedure Note - Detailed Date of Procedure 06/12/22 Pre-op Diagnosis biliary colic Post-op Diagnosis Same Procedure Performed Laparoscopic Cholecystectomy with cholangiogram Surgeon Kirt Tello, DO Anesthesia General and Local (0.5% bupivacaine) Indications This is a 76-year-old woman who presented to the emergency department for right upper quadrant abdominal pain. She has been experiencing pains often on for the past 1-2 years. Over the past several days this has become more constant. She has had a HIDA scan in the past which showed normal function. Previous CT ultrasound were also normal. She presented to the emergency department with worsening pain and CT now is showing distended gallbladder concerning for cholecystitis. A gallbladder ultrasound was also obtained which showed evidence of gallbladder sludge. Her CT did show dilated common bile duct, but ultrasound showed normal size common bile duct and liver enzymes were normal. Discussions were made with the patient about treatment options and decision was made to proceed with laparoscopic cholecystectomy with intraoperative cholangiogram, possible open. Findings Laparoscopic cholecystectomy with cholangiogram was performed. The gallbladder was distended and filled with normal appearing bile. The neck of the gallbladder appeared somewhat angulated and the gallbladder wall did appear to have some chronic wall thickening. The cystic duct tapered to a normal appearing size. Intraoperative cholangiogram was obtained with Omnipaque contrast and there did not appear to be any filling defects or signs of obstruction within the common bile duct. The gallbladder was removed and sent to the lab for pathology. Description of Procedure Procedure as well as risks, benefits, and alternatives were discussed with patient. Written consent was obtained and placed in chart prior to procedure. The patient was brought back to surgical suite. Patient was placed in supine position on operating table. Time-out was done to confirm patient and procedure. Patient was then intubated by the anesthesia department. Abdomen was prepped and draped in sterile fashion using chlorhexidine prep. 0.5% bupivacaine with epinephrine was infiltrated at each site of incision. A 5 millimeter incision was made near the umbilicus, and a 5 millimeter Optiview trocar was advanced through the abdominal layers under direct visualization. Once inside the abdominal cavity, carbon dioxide was insufflated to create a pneumoperitoneum. The camera was inserted and the abdomen was inspected. No immediate abnormalities were identified. The patient was placed in reverse Trendelenburg position and rotated slightly to the left. An 11 millimeter incision was made in the subxiphoid region, and an 11 millimeter trocar was inserted under direct visualization. Two 5 millimeter incisions were made in the right upper quadrant, and two 5 millimeter trocars were inserted under direct visualization. The gallbladder was identified and grasped at the fundus and retracted superiorly. It was then grasped at the infundibulum retracted laterally. Careful dissection around the neck of the gallbladder was performed using blunt dissection with a [place] grasper and hook electrocautery. The cystic duct was identified, and a window was created behind it. The cystic artery was also identified and a window was created behind it. The critical view of safety was identified, visualizing the cystic duct running directly into the neck of the gallbladder, and the cystic artery running directly into the wall of the gallbladder. A 5 millimeter clip student counselor was then used to place 2 clips proximally and 1 clip distally on the cystic artery. It was then transected using endoscopic scissors. The Chester clamp was then placed across the neck of the gallbladder and the Chester cholangiocatheter was then advanced into the distal neck of the gallbladder. The patient was flatte
--- NOTE | 2022-06-12 17:05 | PC.NURSE ---
pt returned from surgery, daughters at bedside, reviewed plan of care
[2022-06-13 00:17] LABS: Glucose Point of Care 171 mg/dl (65-105)
[2022-06-13 02:49] VITALS: BP 128/58; PULSE 95; RESP 16; TEMP 36.6; O2SAT 94
[2022-06-13 05:05] LABS: Hematocrit 38.6 % (37.0-47.0); Hemoglobin 12.6 g/dL (12.0-15.0); Mean Corpuscular HGB Conc 32.6 g/dl (32-36); Mean Corpuscular Hemoglobin 29.2 pg (26-34); Mean Corpuscular Volume 89.4 fl (80-100); Platelet Count Result 218 k/mm3 (150-375); Red Blood Count 4.32 M/mm3 (4.2-5.4); Red Cell Distribution Width 14.3 % (11.5-14.5); White Blood Count 12.5 K/mm3 (4.5-10.0)
[2022-06-13 05:14] LABS: Alanine Aminotransferase 29 U/L (6-35); Albumin Level 3.7 g/dL (3.5-5.1); Alkaline Phosphatase 110 U/L (38-126); Anion Gap 8 mmol/L (8-16); Aspartate Amino Transferase 39 U/L (14-36); Bilirubin,Total 0.6 mg/dL (0.2-1.3); Blood Urea Nitrogen 8 mg/dL (7-17); Carbon Dioxide 23 mmol/L (22-30); Chloride 107 mmol/L (98-107); Estimated CRCL calculation 55 ml/min; Estimated Glomerular Filt Rate > 60; Glucose 128 mg/dL (65-110); Potassium 4.4 mmol/L (3.4-5.0); Sodium 138 mmol/L (137-145)
[2022-06-13] MEDS: LEVOTHYROXINE SODIUM 25 MCG TABLET PO (06:15)
[2022-06-13 06:49] VITALS: BP 131/47; PULSE 73; RESP 18; TEMP 36.8; O2SAT 96
[2022-06-13] MEDS: OPTI-GEN TAB 1 TABLET PO ×2 (08:56→17:15)
[2022-06-13] MEDS: ATORVASTATIN 40 MG TABLET 80 MG PO (08:56)
[2022-06-13] MEDS: PANTOPRAZOLE 40 MG TABLET PO ×2 (08:56→17:15)
[2022-06-13] MEDS: HYDROcodone/acetaminophen (*CRX) 5-325 MG TABLET 1 TAB PO ×2 (09:00→14:55)
[2022-06-13 09:25] LABS: Glucose Point of Care 181 mg/dl (65-105)
[2022-06-13 09:50] VITALS: BP 136/63; PULSE 80; RESP 16; TEMP 37; O2SAT 96
[2022-06-13 12:43] LABS: Glucose Point of Care 127 mg/dl (65-105)
[2022-06-13 14:12] VITALS: BP 126/62; PULSE 67; RESP 14; TEMP 36.4; O2SAT 96
--- NOTE | 2022-06-13 14:14 | WPDANESPN ---
Anes - Prog Note Post-Op Date/Time: 06/13/22 14:14 Cardiovascular status: normal Respiratory status: normal Airway patency: baseline Mental status: baseline Post-Op hydration status: normal Vital Signs: Last Vital Signs Temp 37.0 C 06/13/22 09:50 Pulse 80 06/13/22 09:50 Resp 16 06/13/22 09:50 BP 136/63 06/13/22 09:50 Pulse Ox 96 06/13/22 09:50 O2 Del Method Room Air 06/13/22 09:00 O2 Flow Rate 6 06/12/22 16:25 Pain Score (VAS): 2 I/O: Intake & Output 06/12/22 06/13/22 06/13/22 23:59 07:59 15:59 Intake Total 580 602 5669 Output Total 1725 1200 Balance -1525 -400 1020 Laboratory Tests 06/13/22 03:57 06/13/22 03:57 06/12/22 06/13/22 06/13/22 16:24 00:12 03:57 WBC 12.5 H RBC 4.32 Hgb 12.6 Hct 38.6 MCV 89.4 MCH 29.2 MCHC 32.6 RDW 14.3 Plt Count 218 MPV 12.0 H Sodium Potassium Chloride Carbon Dioxide Anion Gap BUN Creatinine Estim Creat Clear Calc Estimated GFR Glucose POC Capillary Glucose 188 H 171 H Calcium Total Bilirubin AST ALT Alkaline Phosphatase Total Protein Albumin 06/13/22 06/13/22 06/13/22 03:57 08:54 12:30 WBC RBC Hgb Hct MCV MCH MCHC RDW Plt Count MPV Sodium 138 Potassium 4.4 Chloride 107 Carbon Dioxide 23 Anion Gap 8 BUN 8 Creatinine 0.80 Estim Creat Clear Calc 55 Estimated GFR > 60 Glucose 128 H POC Capillary Glucose 181 H 127 H Calcium 9.0 Total Bilirubin 0.6 AST 39 H ALT 29 Alkaline Phosphatase 110 Total Protein 6.0 L Albumin 3.7 Post-procedural complaints: none Patient Feedback: Patient satisfied with anesthetic care.
--- NOTE | 2022-06-13 14:35 | PM.PNGS ---
Progress Note: A&P Assessment and Plan (1) Abnormal findings on imaging of biliary tract: Code(s): R93.2 - Abnormal findings on diagnostic imaging of liver and biliary tract Status: Acute Assessment and Plan: Doing well on POD#1. Continue slowly advancing diet as tolerated. Zofran prn nausea. Possibly home tomorrow if improving. (2) Gallbladder sludge: Code(s): K82.8 - Other specified diseases of gallbladder Status: Acute (3) Constipation: Code(s): K59.00 - Constipation, unspecified Status: Acute Assessment and Plan: Will start MiraLax Subjective Subjective Date/Time Seen: 06/13/22 14:35 Interval history: Still having pain and feeling a little nauseated this morning. No vomiting. Has not had a BM in nearly 7 days. Exam GI: Inspection: non-distended and incision (intact with glue) GI Palp: Yes Soft to palpation, Yes Tenderness to palpation present (GI) (incisional) and No Guarding due to palpation present (GI) Objective Data Vital Signs Vital Signs: Vital Signs - 24 hr 06/12/22 16:11 06/12/22 16:25 06/12/22 16:40 Temperature 36.6 C Pulse Rate 89 63 60 Respiratory Rate 21 H 22 H 21 H Blood Pressure 117/92 H 142/58 H 123/47 L Pulse Oximetry 99 98 94 Oxygen Delivery Simple Face Mask Simple Face Mask Room Air Oxygen Flow Rate 10 6 06/12/22 16:55 06/12/22 17:15 06/12/22 17:30 Temperature 36.7 C 36.7 C Pulse Rate 62 66 70 Respiratory Rate 21 H 22 H 20 Blood Pressure 115/47 L 122/42 L 146/57 H Pulse Oximetry 93 88 L 89 L Oxygen Delivery Room Air Oxygen Flow Rate 06/12/22 18:00 06/12/22 19:00 06/12/22 22:51 Temperature 36.6 C 36.7 C 36.4 C Pulse Rate 77 72 72 Respiratory Rate 20 18 18 Blood Pressure 139/84 141/62 H 125/51 L Pulse Oximetry 91 90 95 Oxygen Delivery Oxygen Flow Rate 06/13/22 02:49 06/13/22 06:49 06/13/22 09:50 Temperature 36.6 C 36.8 C 37.0 C Pulse Rate 95 73 80 Respiratory Rate 16 18 16 Blood Pressure 128/58 L 131/47 L 136/63 Pulse Oximetry 94 96 96 Oxygen Delivery Oxygen Flow Rate 06/13/22 09:00 Temperature Pulse Rate Respiratory Rate Blood Pressure Pulse Oximetry Oxygen Delivery Room Air Oxygen Flow Rate Intake/Output Intake/Output: Intake & Output 06/10/22 06/11/22 06/12/22 06/13/22 23:59 23:59 23:59 23:59 Intake Total 565 2930 1650 1820 Output Total 900 2625 1200 Balance 565 2030 -975 620 Meds/Results Medications: Active Medications Generic Name Dose Route Start Last Admin Trade Name Freq PRN Reason Stop Dose Admin Hydrocodone Bitart/Acetaminophen 1 tab 06/12/22 17:04 06/13/22 09:00 Hydrocodone/Acetaminophen (*Crx) 5-325 Mg Tablet PO 1 tab Q4H PRN Administration Pain Rated 4-6 Hydrocodone Bitart/Acetaminophen 1 tab 06/12/22 17:04 Hydrocodone/Acetaminophen (*Crx) 7.5-325 Mg Tablet PO Q4H PRN Pain Rated 7-10 Atorvastatin Calcium 80 mg 06/11/22 09:00 06/13/22 08:56 Atorvastatin 40 Mg Tablet PO 80 mg DAILY MARISEL Administration Dextrose 12.5 gm 06/11/22 14:40 Dextrose 50% 25 Gm/50 Ml Syringe IV PUSH PRN PRN Hypoglycemia Protocol Diltiazem HCl 240 mg 06/11/22 09:00 06/13/22 08:56 Diltiazem Hcl Cd 240 Mg Cap.Er.24h PO 240 mg DAILY MARISEL Administration Glucagon 1 mg 06/11/22 14:40 Glucagon For Inj 1 Mg Vial IM PRN PRN Hypoglycemia Protocol Glucose 15 gm 06/11/22 14:40 Glucose Oral Gel 15 Gm Of Glucse In 37.5 Gm Tube PO PRN PRN Hypoglycemia Protocol Hydromorphone HCl 0.5 mg 06/12/22 17:04 Hydromorphone Hcl Inj (*Crx) 1 Mg/Ml Syr IV PUSH Q2H PRN Pain Rated 4-6 Hydromorphone HCl 1 mg 06/12/22 17:04 06/12/22 17:19 Hydromorphone Hcl Inj (*Crx) 1 Mg/Ml Syr IV PUSH 1 mg Q2H PRN Administration Pain Rated 7-10 Dextrose 1,000 mls @ 100 mls/hr 06/11/22 14:40 Dextrose 5% 1,000 Ml IVPB PRN PRN Hypoglycemia
[2022-06-13] MEDS: polyethylene glycoL 3350 17 GM POWD.PACK PO (14:55)
--- NOTE | 2022-06-13 16:07 | PM.IMPN ---
Progress Note: A&P Assessment and Plan (1) Right upper quadrant pain: Code(s): R10.11 - Right upper quadrant pain Status: Acute Assessment and Plan: Patient complains of ongoing right upper quadrant/epigastric discomfort. CT of the abdomen/pelvis showed moderately distended gallbladder with dilation of the common bile duct and pancreatic duct. Follow-up right upper quadrant ultrasound showed gallbladder sludge. Lipase, bilirubin, LFTs within normal limits. Patient has been seen in consultation by Gastroenterology and opted for surgical intervention. She is s/p laparoscopic cholecystectomy on 06/[address] Tello. Appreciate general surgery consultation. Continue with low-fat diet. Supportive care, analgesics antiemetics available as needed. (2) Gallbladder sludge: Code(s): K82.8 - Other specified diseases of gallbladder Status: Acute Assessment and Plan: See plan above. POD #1 lap dennise. (3) Nausea and vomiting: Code(s): R11.2 - Nausea with vomiting, unspecified Status: Resolved Assessment and Plan: Patient presented with persistent nausea and vomiting. Likely due to gallbladder sludge. Symptoms resolved. (4) GERD (gastroesophageal reflux disease): Code(s): K21.9 - Gastro-esophageal reflux disease without esophagitis Status: Chronic Assessment and Plan: No acute issues. Continue Protonix 40 mg b.i.d. (5) Type 2 diabetes mellitus: Code(s): E11.9 - Type 2 diabetes mellitus without complications Status: Acute Assessment and Plan: Blood sugars have been well controlled. Home metformin is on hold. Continue Accu-Cheks, low dose sliding scale insulin, and hypoglycemic protocol (6) Hypertension: Code(s): I10 - Essential (primary) hypertension Status: Acute Assessment and Plan: Blood pressures reviewed and have been reasonably controlled. Continue home diltiazem. Monitor BP trends (7) Chronic back pain: Code(s): M54.9 - Dorsalgia, unspecified; G89.29 - Other chronic pain Status: Acute Assessment and Plan: Patient with chronic back pain established with pain management. She has an active pain pump in place. Subjective Date/time seen: 06/13/22 16:07 Interval history: Date of service: 06/13/2022 Khushbu Avina is 76-year-old female with a history of COPD, cervical cancer, type 2 diabetes mellitus, gastroparesis, hypertension, hyperlipidemia, hypothyroidism who is seen in follow-up for Biliary colic s/p laparoscopic cholecystectomy on 06/12. She tolerated the procedure well. she does complain abdominal soreness today that she rates as about 8/10. She has an ice pack on her abdomen and states this is improving her symptoms. She does have some abdominal cramping. She endorses belching. She is not passing flatus today. She has not had a bowel movement in several days. She endorses nausea but no vomiting. She has been able to get up and ambulate to the bathroom without difficulty. She denies urinary symptoms. Denies shortness breath, cough, chest pain, palpitations. Review of Systems Review of Systems: All systems reviewed & are unremarkable except as noted in HPI and below Exam Narrative: General: Well-nourished, well-appearing 76-year-old female, sitting up in bed, comfortable, NARD Neuro: awake, alert and oriented x4, speech clear, no focal neuro deficits noted HEENMT: normocephalic, atraumatic, EOMI, sclerae anicteric Respiratory: clear to auscultation bilaterally, nonlabored breathing Cardio: regular rate, regular rhythm with S1-S2 Abdomen: nondistended, normoactive bowel sounds, soft, nontender to palpation, abdominal surgical incisions noted, pain pump is palpable in left lower quadrant Extremities: no edema, erythema, or tenderness to palpation, DP pulses 2+ bilaterally Skin: no rashes or lesions, warm and dry Psych: appropriate mood and affect,
[2022-06-13 19:10] LABS: Glucose Point of Care 112 mg/dl (65-105)
[2022-06-13] MEDS: HYDROcodone/acetaminophen (*CRX) 7.5-325 MG TABLET 1 TAB PO (19:44)
[2022-06-13 20:00] VITALS: BP 149/60; PULSE 69; RESP 14; TEMP 36.4; O2SAT 95
[2022-06-13 21:35] LABS: Glucose Point of Care 175 mg/dl (65-105)
[2022-06-14] MEDS: HYDROcodone/acetaminophen (*CRX) 7.5-325 MG TABLET 1 TAB PO (00:22)
[2022-06-14] MEDS: LEVOTHYROXINE SODIUM 25 MCG TABLET PO (05:32)
[2022-06-14 05:34] VITALS: BP 128/86; PULSE 79; RESP 18; TEMP 36.5; O2SAT 95
[2022-06-14] MEDS: HYDROcodone/acetaminophen (*CRX) 5-325 MG TABLET 1 TAB PO (05:34)
[2022-06-14 05:38] LABS: Hematocrit 36.6 % (37.0-47.0); Hemoglobin 11.9 g/dL (12.0-15.0); Mean Corpuscular HGB Conc 32.5 g/dl (32-36); Mean Corpuscular Hemoglobin 28.8 pg (26-34); Mean Corpuscular Volume 88.6 fl (80-100); Mean Platelet Volume 11.2 fl (7.4-10.4); Platelet Count Result 228 k/mm3 (150-375); Red Blood Count 4.13 M/mm3 (4.2-5.4); Red Cell Distribution Width 14.6 % (11.5-14.5); White Blood Count 9.2 K/mm3 (4.5-10.0)
[2022-06-14 06:00] LABS: Anion Gap 8 mmol/L (8-16); Blood Urea Nitrogen 12 mg/dL (7-17); Calcium 8.7 mg/dL (8.4-10.2); Carbon Dioxide 29 mmol/L (22-30); Chloride 104 mmol/L (98-107); Estimated CRCL calculation 49 ml/min; Estimated Glomerular Filt Rate > 60; Glucose 93 mg/dL (65-110); Potassium 4.3 mmol/L (3.4-5.0); Sodium 141 mmol/L (137-145)
[2022-06-14 08:57] LABS: Glucose Point of Care 99 mg/dl (65-105)
[2022-06-14] MEDS: polyethylene glycoL 3350 17 GM POWD.PACK PO (09:58)
[2022-06-14] MEDS: OPTI-GEN TAB 1 TABLET PO (09:58)
[2022-06-14] MEDS: PANTOPRAZOLE 40 MG TABLET PO (09:58)
[2022-06-14] MEDS: ATORVASTATIN 40 MG TABLET 80 MG PO (09:58)
--- NOTE | 2022-06-14 11:22 | PM.PNGS ---
Progress Note: A&P Assessment and Plan (1) Abnormal findings on imaging of biliary tract: Code(s): R93.2 - Abnormal findings on diagnostic imaging of liver and biliary tract Status: Acute Assessment and Plan: Continues to improve POD#2. Pain is better controlled today. She is tolerating a low fat diet. Has not been ambulating or moving much and is concerned about being discharged home today where she lives alone. Will try getting her up and moving more today. Ambulate in the halls. Hopefully, she can be discharged later today or tomorrow if she has good strength and continues to improve. (2) Gallbladder sludge: Code(s): K82.8 - Other specified diseases of gallbladder Status: Acute (3) Constipation: Code(s): K59.00 - Constipation, unspecified Status: Acute Assessment and Plan: Continue MiraLax Plan I have discussed the patient's case and plan of care with Dr. Tello. Subjective Subjective Date/Time Seen: 06/14/22 10:22 Post Op day: 2 (Laparoscopic cholecystectomy) Patient reports: feels better, pain is less, tolerating a regular diet, voiding w/o difficulty, flatus, no bowel movement and afebrile Interval history: Patient is seen and examined. Her abdominal pain is much better today. She is only complaining of incisional pain and feels it is being controlled with the [place]. She has not been up and ambulating other than into the bathroom. She does live alone and is still concerned about going home by herself yet today. She plans to try getting up and walking around the halls today. Review of Systems Review of Systems: All systems reviewed & are unremarkable except as noted in HPI and below Exam Const: General: comfortable and no acute distress Orientation/consciousness: patient oriented x3 GI: Inspection: non-distended and incision (incisions dry and intact, min ecchymosis around epigastric incision) GI Palp: Yes Soft to palpation, Yes Tenderness to palpation present (GI) (incisional) and No Guarding due to palpation present (GI) Auscultation: normal bowel sounds Extrem: General: no calf tenderness and no edema Psych: Mental Status: mental status grossly normal Insight: Good insight present (Psych) Objective Data Vital Signs Vital Signs: Vital Signs - 24 hr 06/13/22 14:12 06/13/22 20:00 06/14/22 05:34 Temperature 97.6 F 97.6 F 97.7 F Pulse Rate 67 69 79 Respiratory Rate 14 14 18 Blood Pressure 126/62 149/60 H 128/86 Pulse Oximetry 96 95 95 Oxygen Delivery 06/14/22 09:30 Temperature Pulse Rate Respiratory Rate Blood Pressure Pulse Oximetry Oxygen Delivery Room Air Intake/Output Intake/Output: Intake & Output 06/11/22 06/12/22 06/13/22 06/14/22 23:59 23:59 23:59 23:59 Intake Total 2930 1650 2810 780 Output Total 900 2625 2150 800 Balance 8470 -460 660 -20 Meds/Results Medications: Active Medications Generic Name Dose Route Start Last Admin Trade Name Freq PRN Reason Stop Dose Admin Hydrocodone Bitart/Acetaminophen 1 tab 06/12/22 17:04 06/14/22 05:34 Hydrocodone/Acetaminophen (*Crx) 5-325 Mg Tablet PO 1 tab Q4H PRN Administration Pain Rated 4-6 Hydrocodone Bitart/Acetaminophen 1 tab 06/12/22 17:04 06/14/22 00:22 Hydrocodone/Acetaminophen (*Crx) 7.5-325 Mg Tablet PO 1 tab Q4H PRN Administration Pain Rated 7-10 Atorvastatin Calcium 80 mg 06/11/22 09:00 06/14/22 09:58 Atorvastatin 40 Mg Tablet PO 80 mg DAILY MARISEL Administration Dextrose 12.5 gm 06/11/22 14:40 Dextrose 50% 25 Gm/50 Ml Syringe IV PUSH PRN PRN Hypoglycemia Protocol Diltiazem HCl 240 mg 06/11/22 09:00 06/14/22 09:58 Diltiazem Hcl Cd 240 Mg Cap.Er.24h PO 240 mg DAILY MARISEL Administration Glucagon 1 mg 06/11/22 14:40 Glucagon For Inj 1 Mg Vial IM PRN PRN Hypoglycemia Protocol Glucose 15 gm 06/11/22 14:40 Glucose Oral Gel 15 Gm Of Glucse In 37.5 Gm Tube
[2022-06-14 12:32] LABS: Glucose Point of Care 188 mg/dl (65-105)
--- NOTE | 2022-06-14 12:52 | PC.NURSE ---
On 06/14/22, the student, [Barrett Alfaro], provided care and completed [facility] documentation on this patient. I have reviewed the student's documentation and agree with the findings.
--- NOTE | 2022-06-14 14:28 | PM.DS ---
DS: Admitting Diagnosis Discharge Date 06/14/22 1429 Admitting Diagnosis (1) Nausea and vomiting: (2) Right upper quadrant pain (3) GERD (gastroesophageal reflux disease) (4) UTI (urinary tract infection) DS: Discharge Diagnosis Discharge Diagnosis (1) Gallbladder sludge: Code(s): K82.8 - Other specified diseases of gallbladder Status: Acute (2) GERD (gastroesophageal reflux disease): Qualifiers: Esophagitis presence: without esophagitis Qualified Code(s): K21.9 - Gastro-esophageal reflux disease without esophagitis Code(s): K21.9 - Gastro-esophageal reflux disease without esophagitis Status: Chronic (3) Type 2 diabetes mellitus: Qualifiers: Diabetes mellitus jail insulin use: without jail use Diabetes mellitus complication status: without complication Qualified Code(s): E11.9 - Type 2 diabetes mellitus without complications Code(s): E11.9 - Type 2 diabetes mellitus without complications Status: Acute (4) Hypertension: Qualifiers: Hypertension type: primary hypertension Qualified Code(s): I10 - Essential (primary) hypertension Code(s): I10 - Essential (primary) hypertension Status: Chronic (5) Asymptomatic bacteriuria: Code(s): R82.71 - Bacteriuria Status: Acute DS: Summary Hospital Course Reason for hospitalization: Nausea and vomiting Hospital Course: Khushbu Avina is a 76-year-old female with hypothyroidism, type 2 diabetes mellitus, gastroesophageal reflux disease, dyslipidemia, gastroparesis, and hiatal hernia. She presented to the emergency room for evaluation of nausea, vomiting and abdominal pain for several days. She was seen and evaluated earlier the previous week and was sent home with treatment for urinary tract infection however patient returned for evaluation of intractable nausea, vomiting, and abdominal pain worsening for the last 3 days prior to admission. She has not been able to eating or able to keep anything down. She denies fevers, rigors, chills, cough, sputum production, hematemesis, bright red blood per rectum, coffee-ground emesis, or melena.? Her abdominal pain is in the right upper quadrant, 10/10, constant and colicky. Preliminary workup was significant for a CT of abdomen and pelvis?suggesting distended gallbladder. CBC and CMP were unremarkable. Biliary Colic/gallbladder sludge: CT abdomen/pelvis showed moderately distended gallbladder with dilation of the common bile duct and pancreatic duct.? right upper quadrant ultrasound showed gallbladder sludge.? Lipase, bilirubin, LFTs within normal limits on admission and unremarkable during hospital stay. General Surgery and Gastroenterology consulted. Patient opted for surgical intervention. Patient underwent laparoscopic cholecystectomy on 06/12/22. Her postoperative course was complicated by severe pain requiring IV dilaudid. Oral norco 5/325 mg for moderate pain and 7.5/325 mg for severe pain with improvement in pain on 06/14/22. She tolerated a low-fat diet without need for antiemetics. She was ambulating in the hallway without difficulty. She was discharged home in stable conditions. and will follow up with Dr. Tello in 10-14 days. She was discharged home with [place] 5/325 mg, 1 tablet PO Q6 hours PRN for moderate or severe pain. GERD (gastroesophageal reflux disease) Chronic, stable and continued on Protonix 40 mg b.i.d. Type 2 diabetes mellitus Chronic, stable. Metformin held during admission. She was monitored with accu-checks AC/HS with low dose aspart sliding scale with hypoglycemia protocol. Glucose ranged from 99 to 175 mg/dL during his hospital stay. She was resumed on metformin at discharge. Hypertension Chronic, stable. BP 115/47 to 140/60 and stable. Patient continued on home diltiazem at discharge. Status at Discharge Cognitive/behavioral status at discharge: Alert and oriented x4, pleasant and cooperative. Functional
[2022-06-14 15:13] VITALS: BP 142/59; PULSE 78; RESP 16; TEMP 36.8; O2SAT 97
== END 2022-06-14 16:53 | disposition home or self-care (01) | DRG 418 ==
LOC: ANHED 06-11 02:55 → ANH2MED 06-11 03:18
PROVIDERS: Physician Assistant; Surgery; Admitting Provider Internal Medicine; Emergency Provider Emergency Medicine; PCP Student in an Organized Health Care Education/Training Program; Visit Provider Nurse Practitioner Family
PROC: 0FT44ZZ Resection of Gallbladder, Percutaneous Endoscopic Approach (ICD-10-PCS; CPT 47562; principal; 2022-06-12 14:00)
DX: K82.8 Other specified diseases of gallbladder (principal); N39.0 Urinary tract infection, site not specified; J44.9 Chronic obstructive pulmonary disease, unspecified; I10 Essential (primary) hypertension; K44.9 Diaphragmatic hernia without obstruction or gangrene; K31.84 Gastroparesis; E11.43 Type 2 diabetes mellitus with diabetic autonomic (poly)neuropathy; E78.5 Hyperlipidemia, unspecified; E03.9 Hypothyroidism, unspecified; K21.9 Gastro-esophageal reflux disease without esophagitis; M54.9 Dorsalgia, unspecified; M19.90 Unspecified osteoarthritis, unspecified site; G89.29 Other chronic pain; Z96.89 Presence of other specified functional implants; Z85.41 Personal history of malignant neoplasm of cervix uteri; Z87.891 Personal history of nicotine dependence; K59.00 Constipation, unspecified
CPT/HCPCS: 36415; 74177; 74300; 76705; 80048; 80053; 81001; 82948; 83690; 85025; 85027; 88304; 96361; 96365; 96366; 96372; 96375; 96376; 99285; A9270; G0378; J0131; J0461; J0500; J0690; J1170; J2270; J2370; J2405; J2704; J2710; J3010; J7030; J7040; J7120; Q9966; Q9967

== ENCOUNTER 2023-05-26 10:12 | Outpatient (CLI) | payer MEDICARE, SELFPAY ==
--- NOTE | ~2023-05-26 | MM_ITS ---
EXAMINATION: MM screening katrina BI w corbin HISTORY: Screening mammogram TECHNIQUE: Craniocaudal and mediolateral oblique 3-D tomosynthesis images were obtained and synthetic 2-D images were generated. CAD analysis was submitted and interpreted. COMPARISON: 04/21/2021, 04/02/2020 BREAST PARENCHYMAL COMPOSITION:There are scattered areas of fibroglandular density. FINDINGS: No suspicious mass, calcification, or architectural distortion are identified in either lizzie ast to suggest malignancy. There has been no suspicious interval change. IMPRESSION: No mammographic evidence of malignancy. Recommend routine screening mammography in one year. BI-RADS Category 1: Negative Reviewed, dictated and finalized at location .
--- NOTE | ~2023-05-26 | DEXA_ITS ---
Bone Density Report Name: CARTER AYON Age: 77 Sex: Female Ethnicity: White Date of : 1945 Indication: osteopenia; height loss; hysterectomy; postmenopausal Referring Provider: DILEEP, HARRY Study: Bone densitometry was performed. Exam Date: May 26, 2023 Accession number: [id number] Bone Density: Region BMD T-score Z-score Classification AP Spine(L1-L4) 0.869 -1.6 1.0 Osteopenia Femoral Neck (Right) 0.585 -2.4 -0.1 Osteopenia Total Hip (Right) 0.767 -1.4 0.6 Osteopenia World Health Organization criteria for BMD impression classify patients as: Normal (T-score at or above -1.0), Osteopenia (T-score between -1.0 and -2.5), or Osteoporosis (T-score at or below -2.5). 10-year Fracture Risk(1): Major Osteoporotic Fracture 16% Hip Fracture 4.9% Reported Risk Factors: [place] (), Neck BMD=0.585, BMI=35.2 (1) FRAX(R) Version 3.08. Fracture probability calculated for an untreated patient. Fracture probability may be lower if the patient has received treatment. Previous Exams: Region Exam Age BMD T-score BMD Change BMD Change Date g/cm2 vs Baseline vs Previous AP Spine (L1-L4) 05/26/2023 77 0.869 -1.6 -0.104 (-10.7% 0.007 (0.9%) 02/23/2020 74 0.862 -1.7 -0.111 (-11.4% -0.097 (-10.1% 07/29/2015 69 0.959 -0.8 -0.014 (-1.4%) -0.014 (-1.4%) 06/07/2012 66 0.973 -0.7 Total Hip(Right) 05/26/2023 77 0.767 -1.4 -0.162 (-17.4% 0.005 (0.6%) 02/23/2020 74 0.763 -1.5 -0.167 (-18.0% -0.109 (-12.5% 07/29/2015 69 0.872 -0.6 -0.058 (-6.2%) -0.058 (-6.2%) 06/07/2012 66 0.930 -0.1 *Denotes significance at 95% confidence level, LSC for AP Spine = 0.022 g/cm2, LSC for Total Hip = 0.027 g/cm2 # Denotes dissimilar scan types or analysis methods Clinical Information Provided by Patient: Has used the following medications: Vitamin D, Calcium Has the following medical conditions: Hysterectomy Patient maximum height was 67 No regular weight bearing exercise Drinks caffeinated beverages Number of children 3 Impression: The patient has low bone mass, based on the Right Femoral Neck T-score. The patient has an estimated ten-year risk of hip fracture of 4.9% and an estimated ten-year risk of major fracture of 16%, based on the WHO FRAX algorithm. No significant bone loss was observed. Discussion: BONE DENSITY IS LOW AT ONE OR MORE SKELETAL SITES. THE PATIENT'S BMD AND CLINICAL RISK FACTORS CONTRIBUTE TO THIS PATIENT'S INCREASED RISK OF FRACTURE. This patient's lowest T-
== END 2023-05-26 10:13 | disposition home or self-care (01) ==
PROVIDERS: PCP Student in an Organized Health Care Education/Training Program; Visit Provider Student in an Organized Health Care Education/Training Program
DX: Z12.31 Encounter for screening mammogram for malignant neoplasm of breast (principal); Z78.0 Asymptomatic menopausal state; M85.88 Other specified disorders of bone density and structure, other site; M85.851 Other specified disorders of bone density and structure, right thigh
CPT/HCPCS: 77063; 77067; 77080

== ENCOUNTER 2023-11-22 15:04 | Emergency (ER) | payer MEDICARE, SELFPAY ==
--- NOTE | ~2023-11-22 | US_ITS ---
EXAMINATION:US venous doppler LE RT INDICATION:Right leg swelling TECHNIQUE: Multiple grayscale, color flow and Doppler images of the right lower extremity deep venous systems were obtained and reviewed. COMPARISON:No prior studies for comparison. FINDINGS: The common femoral, superficial femoral and popliteal veins demonstrate normal respiratory variation, augmentation and compressibility. Color flow is also seen within the posterior tibial, pe roneal, greater saphenous and profunda veins. IMPRESSION: 1: No lower extremity deep venous thrombosis. Reviewed, dictated and finalized at location A.
--- NOTE | ~2023-11-22 | XR_ITS ---
EXAMINATION: XR foot RT min 3V DATE: 11/22/2023 15:38 INDICATION: Right foot pain. TECHNIQUE: 4 views of right foot were obtained. COMPARISON: None. FINDINGS: Bone alignment is normal. No fracture. There is mild osteoarthritis of first metatarsophala ngeal joint and some of the interphalangeal joints. There are enthesophytes at the posterior and plan tar aspects of calcaneal tuberosity. IMPRESSION: 1. Mild polyarticular osteoarthritis. Reviewed, dictated and finalized at location A.
[2023-11-22 15:08] VITALS: BP 147/72; PULSE 98; RESP 16; TEMP 37; O2SAT 98
--- NOTE | 2023-11-22 15:58 | ED.EXTPRO ---
HPI - Extremity Problem General Chief complaint: Extremity Problem,Nontraumatic Stated complaint: swollen right LE Time Seen by Provider: 11/22/23 15:11 History of Present Illness HPI Narrative: patient is a 78-year-old female who presents ER with swelling and redness the right lower extremity beneath the knee for the last 2 days. No trauma. No fevers chills or sweats. no history of blood clots. No recent surgery or prolonged immobility. No LLE issues. Mild pain to her right midfoot were there is edema. Related Data Home Medications Medication Instructions Recorded Confirmed diltiazem HCl 240 mg capsule,24 240 mg PO DAILY 07/22/19 06/30/22 hr,extended release (Tiazac) vit C 250 mg-vit E 90 mg-zinc 40 1 tablet PO BID 07/22/19 06/30/22 mg-copper 1 [id number] capsule (PreserVision AREDS-2) pantoprazole 40 mg tablet,delayed 40 mg PO BID 02/19/20 06/30/22 release atorvastatin 80 mg tablet (Lipitor) 80 mg PO DAILY 12/21/20 06/30/22 levothyroxine 25 mcg tablet 25 mcg PO DAILY 12/21/20 06/30/22 (Synthroid) metformin 500 mg tablet,extended 500 mg PO DAILY 05/09/21 06/30/22 release 24 hr Allergies Allergy/AdvReac Type Severity Reaction Status Date / Time amitriptyline Allergy Mild RECTAL Verified 11/22/23 15:07 BLEEDING cortisone Allergy Mild Swelling Verified 11/22/23 15:07 Corticosteroids Allergy Unknown Swelling Verified 11/22/23 15:07 (Glucocorticoids) duloxetine Allergy Unknown Unknown Verified 11/22/23 15:07 fluticasone Allergy Unknown Unknown Verified 11/22/23 15:07 Penicillins Allergy Unknown Unknown Verified 11/22/23 15:07 aluminum hydroxide Allergy Diarrhea Verified 11/22/23 15:07 [From Mylanta] calcium carbonate Allergy Diarrhea Verified 11/22/23 15:07 [From Mylanta] magnesium [From Mylanta] Allergy Diarrhea Verified 11/22/23 15:07 magnesium hydroxide Allergy Diarrhea Verified 11/22/23 15:07 [From Mylanta] simethicone [From Mylanta] Allergy Diarrhea Verified 11/22/23 15:07 FLUTICASONE FUROATE Allergy Unknown TONGUE Uncoded 06/27/22 10:42 SWELLING Review of Systems Review of Systems: All systems reviewed & are unremarkable except as noted in HPI and below Constitutional: Constitutional: Reports no additional constitutional complaints Cardiovascular: Cardiovascular: Reports no additional cardiovascular complaints Respiratory: Respiratory: Reports no additional respiratory complaints Musculoskeletal: Musculoskeletal: Denies arthralgias and Denies joint swelling Comments: right leg edema Integumentary/Breasts: Skin/Breast: Reports erythema, Denies rash and Denies skin ulcer [facility] Past Medical History Medical History (Updated 11/22/23 @ 16:44 by Silvestre Colbert MD) Arthritis Back pain Cervical cancer COPD (chronic obstructive pulmonary disease) Diabetes Gastroparesis GERD (gastroesophageal reflux disease) Hiatal hernia Hyperlipidemia Hypertension Hypothyroidism Type 2 diabetes mellitus Surgical History Surgical History H/O hemorrhoidectomy H/O: hysterectomy Family History Family History Father Diabetes mellitus Sibling Family history of cardiovascular disease Family history of liver disease Mother Carcinoma of colon Social History Social History Smoking packs per day: 1 Smoking cigarettes per day: 20.0 Years smoked: 10 Smoking pack-years: 10.00 Smoking status: Former smoker Tobacco type: cigarettes Second hand tobacco smoke exposure: No Smoking end date: 08/13/94 Alcohol intake: current Drinks per week: 1 Alcohol use details: very rarely Substance use: never Substance use type: does not use Lack of Transportation: No Lack of Food: Never True Current Housing: I Have Housing Concerned About Future Housing: No D
[2023-11-22 16:08] LABS: Basophils Percent Auto 0.3 % (0.2-1.2); Eosinophils Absolute Auto 0.1 K/mm3 (0-0.3); Hematocrit 41.1 % (37.0-47.0); Hemoglobin 13.1 g/dL (12.0-15.0); Immature Granulocyte Absolute 0.02 K/mm3 (0.00-0.031); Immature Granulocyte Percent A 0.3 % (0-0.5); Lymphocytes Absolute Auto 1.43 K/mm3 (0.9-3.2); Lymphocytes Percent Auto 23.8 % (18.3-44.2); Mean Corpuscular HGB Conc 31.9 g/dl (32-36); Mean Corpuscular Hemoglobin 28.9 pg (26-34); Mean Corpuscular Volume 90.7 fl (80-100); Mean Platelet Volume 10.4 fl (7.4-10.4); Monocytes Absolute Auto 0.6 K/mm3 (0.1-0.6); Monocytes Percent Auto 9.3 % (2.6-8.5); Neutrophils Absolute Auto 3.9 K/mm3 (1.3-6.7); Neutrophils Percent Auto 65.3 % (45.5-73.1); Platelet Count Result 220 k/mm3 (150-375); Red Blood Count 4.53 M/mm3 (4.2-5.4); Red Cell Distribution Width 14.6 % (11.5-14.5)
[2023-11-22 16:17] LABS: Partial Thromboplastin Time 23.9 Seconds (22.3-36.8)
[2023-11-22 16:24] LABS: Anion Gap 6 mmol/L (4-12); Blood Urea Nitrogen 11 mg/dL (7-17); Calcium 9.6 mg/dL (8.4-10.2); Carbon Dioxide 28 mmol/L (22-30); Chloride 108 mmol/L (98-107); Estimated CRCL calculation 58 ml/min; Estimated Glomerular Filt Rate > 60; Glucose 137 mg/dL (65-110); Sodium 142 mmol/L (137-145)
== END 2023-11-22 17:00 | disposition home or self-care (01) ==
PROVIDERS: Emergency Provider Emergency Medicine; PCP Student in an Organized Health Care Education/Training Program
DX: R60.0 Localized edema (principal); M19.071 Primary osteoarthritis, right ankle and foot; I10 Essential (primary) hypertension; J44.9 Chronic obstructive pulmonary disease, unspecified; E11.43 Type 2 diabetes mellitus with diabetic autonomic (poly)neuropathy; K31.84 Gastroparesis; E78.5 Hyperlipidemia, unspecified; E03.9 Hypothyroidism, unspecified; K21.9 Gastro-esophageal reflux disease without esophagitis; M19.90 Unspecified osteoarthritis, unspecified site; Z85.41 Personal history of malignant neoplasm of cervix uteri; Z79.84 Long term (current) use of oral hypoglycemic drugs; Z87.891 Personal history of nicotine dependence
CPT/HCPCS: 36415; 73630; 80048; 85025; 85610; 85730; 93971; 99284

== ENCOUNTER 2025-01-01 14:35 | Outpatient (CLI) | payer MEDICARE, SELFPAY ==
--- NOTE | ~2025-01-01 | US_ITS ---
EXAMINATION: US venous doppler LE DATE: 01/01/2025 15:10 INDICATION: Right lower limb pain and swelling TECHNIQUE: Grayscale ultrasound images without and with compression and Doppler ultrasound images of the right lower extremity veins were obtained. COMPARISON: None. FINDINGS: The visualized portions of right common femoral vein, profunda (deep) femoral vein, femoral vein, pop liteal vein, peroneal trunk, posterior tibial veins, peroneal veins, gastrocnemius vein and greater s aphenous vein outflow are patent. IMPRESSION: 1. No deep venous thrombosis in the right lower limb. Reviewed, dictated and finalized at location A.
--- OUTSIDE RECORDS SUMMARY | 2025-01-01 14:41 | XMS_ITS | Clinical Summary ---
Author Organization [facility] Address [address] [place] [address] Care Team Providers Care Bronzer Name Role Phone Palomo Morejon DO Primary Care Provide r Allergies Active Allergy Reactions Criticality Noted Date Comments Amitriptyline Unknown Medium Cortisone Rash Medium Duloxetine Anaphylaxis High Fentanyl Nausea & Vomiting Low Metoclopramide Other (See comments) Low 08/09/2021 Upset stomach, unable to digest food and felt lifeless Penicillins Hives High Medications levothyroxine (SYNTHROID) 25 mcg tablet Take 1 tablet (25 mcg total) by mouth svp programmatic tv before breakfast Active diltiazem (TIAZAC) 240 mg 24 hr capsule Take 1 capsule (240 mg total) by mouth daily Active pantoprazole DR (PROTONIX) 40 mg EC tablet Take 1 tablet (40 mg total) by mouth daily Active vit A/vit C/vit E/zinc/copper (PRESERVISION AREDS ORAL) Take by mouth daily Active multivitamin capsule Take 1 capsule by mouth daily Active atorvastatin (LIPITOR) 20 mg tablet Take 4 tablets (80 mg total) by mouth daily Active FIBER, DEXTRIN, ORAL Take by mouth Active UNABLE TO FIND Pain Pump Activ e albuterol HFA (PROVENTIL HFA,VENTOLIN HFA,PROAIR HFA) 90 mcg/actuation inhaler 2 puffs every 6 (six) hours as needed 3 Active amitriptyline (ELAVIL) 10 mg tablet Take 1 tablet (10 mg total) by mouth daily 3 Active famotidine (PEPCID) 20 mg tablet Take 1 tablet (20 mg total) by mouth 2 (two) times a day 3 Active Active Problems Problem Noted Date Diagnosed Date Epigastric pain 03/01/2023 Abdominal pain 01/28/2023 GERD (gastroesophageal reflux disease) 3 Chronic pain syndrome 11/08/2022 End of battery life of intrathecal infusion pump 11/08/2022 Chronic bilateral low back pain with bilateral s ciatica 11/08/2022 Spinal stenosis of lumbar re gion with neurogenic claudication 11/08/2022 Diabetes mellitus 12/13/2020 Hyperlipidemia associated with type 2 diabetes m ellitus 08/26/2020 BMI 25.0-25.9,adult 03/03/2020 Constipation 03/03/2020 Gastroparesis due to DM 03/03/2020 Hypertension associated with diabetes 03/03/2020 Hypothyroidism 03/03/2020 Irritable bowel syndrome 03/03/2020 Type 2 diabetes mellitus wit hout complication, without long-term current use of insulin 03/03/2020 Surgical History Surgery Date Site/Laterality Comments FOOT SURGERY Foot Surgery HYSTERECTOMY Hysterectomy SINUS SURGERY CHOLECYSTECTOMY 06/12/2022 UPPER GASTROINTESTINAL ENDOSCOPY Medical History Medical History Date Comments Diabetes mellitus (HCC) Diabetes Hypertension Hypertension Hyperlipidemia Thyroid disease Asthma Hypothyroidism Type 2 diabetes mellitus (HCC) GERD (gastroesophageal reflux disease) Gastroparesis Abdominal pain Common bile duct dilatation Pancreatic duct dilated Family History Medical History Relation Name Comments Diabetes Father Diabetes mellit us; Colon cancer Mother Cancer -colon; Stroke Mother Stroke; Relation Name Status Comments Father Mother Social History Tobacco Use Types Packs/Day Years Used Date Smoking Tobacco: Former Cigarettes Q uit: 1999 Smokeless Tobacco: Never Tobacco Cessation:Counseling Given: Not Answered Alcohol Use Standard Drinks/Week Comments Not Currently 0 (1 standard drink = 0.6 oz pur e alcohol) AUDIT-C Answer Date Recorded Q1: How often do you have a drink containing alc ohol? Never 05/24/2023 Average Number of Drinks Not on file 023 Frequency of Binge Drinking Not on file 05/13 Personal Safety Answer Date Recorded Have you ever been in or are you currently in a harmful physical or emotional relationship or is someone making you feel afraid or unsafe? Denies 05/24/2023 Comments No Sex and Gender Information Value Date Recorded Sex Assigned at Not on file Legal Sex Female 1:35 AM ESCALATOR ATTENDANT Gender Identity Not on file Sexual Orientation Not on file Obstetrics History Last Filed Vital Signs Vital Sign Reading Time Taken Comments Blood Pressure 154/82 11/22/2023 2:42 PM CDT Pulse 104 11/22/2023 2:42 PM CDT Temperature 36.7 C (98 F) 11/22/2023 2:42 PM CDT Respiratory Rate 22 11/22/2023 2:42 PM CDT Oxygen Saturation 95% 11/22/2023 2:42 PM CDT Inhaled Oxygen Concentration - - Weight 88.5 kg (195 lb) 11/22/2023 2:42 PM CDT Height 170.2 cm (5' 7 ) 06/27/2023 1:10 PM ESCALATOR ATTENDANT Body Mass Index 30.54 06/27/2023 1:10 PM ESCALATOR ATTENDANT Plan of Treatment Health Maintenance Due Date Last Done Comments Albumin Creatinine Ratio, Urine 1944 Depression Screening 1944 Hemoglobin A1C 1944 Dilated Eye Exam 1944 Foot Exam 1945 Well Visit 65+ 2009 Osteoporosis Screening-Bone Density Scan 02/22/2022 02/23/2020 DTaP/Tdap/Td Vaccine (2 - Td or Tdap) 12/04/2022 12/04/2012 eGFR 04/12/2024 04/12/2023, 02/10, 07/18/2021 Covid-19 Vaccine (4 - 2023-2 5 season) 2024 06/05/2021, 10/28/2020, 10/07/2020 Lipid Panel 05/21/2024 05/21/2023, 06/13, 02/24/2021, Additional history exists Fall Risk Assessment 05/24/2024 05/24/2023 Influenza Vaccine (Season Ended) 2025 04/16/2020, 04/16/2020, 04/24/2019, Additional history exists Pneumococcal vaccine 65+ Completed 017, 04/07/2011, 06/11/2006 Zoster Vaccine Completed 06/30/2019, 07/0 10/2018, 11/06/2016 Hepatitis B Screening Completed 04/07/2023 Medical Devices Implanted Type Area Helium Arc Welder Device Identifier Shelf Expiration Date Model / Serial / Lot Medtronic Inc Synchromed Ii .78in [place] Filter Mesh Pouch Programmable 8637-20 - [id number] - [id number] Implanted:Qty: 1 on 11/27/2022 by Hugh Chong MD at [facility] Left: Abdomen Medtronic Inc 05/10/2024 8637-20 / [id number] / Explanted Type Area Helium Arc Welder Device Identifier Shelf Expiration Date Model / Serial / Lot Intrathecal Pain Pump Explanted:Qty: 1 on 11/27/2022 by Hugh Chong MD at [facility] Left: Abdomen Medtronic Description:Intrathecal Pain Pump Battery removed Procedures Procedure Name Priority Date/Time Associated Diagnosis Comments EGFR Routine 04/12/2023 11:43 AM CDT Abdominal pain POCT LIPID PANEL Routine 2020 11:5 5 AM ESCALATOR ATTENDANT Hypertension associated with diabetes (HCC) from Last 3 Months or Most Recently Relevant to Health Maintenance Results * eGFR (04/12/2023 11:43 AM CDT) eGFR 75 mL/min/1. 73 m2 MEL Comment: Interpretive Data Reference Interval Normal >/= 90 mL/min/1.73m2 Mildly decreased* 60 - 89 mL/min/1.73m2 Mildly to moderately decreased 45 - 59 mL/min/1.73m2 Moderately to severely decreased 30 - 44 mL/min/1.73m2 Severely decreased 15 - 29 mL/min/1.73m2 Kidney Failure < 15 mL/min/1.73m2 *Relative to young adult level Estimated glomerular filtration rate is determined by the 2020 CKD-EPI equation recommended by the National Kidney Foundation (A Unifying Approach to GFR Estimation: Recommendations of the NKF-ASK Task Force on Reassessing the Inclusion of Race in Diagnosing Kidney Disease, JASN 202). The CKD-EPI equation should not be used for patients with unstable renal function and has not been validated in children and those over 70. Current interpretive data was last reviewed 2021. Testing performed by: [facility], [address] [place] [address]., [id number] Blood 04/12/2023 11:4 3 AM CDT 04/12/2023 12:05 PM CDT us E[facility] BLOOD ORDERABLES Final Result MEL [facility] [id number] [facility] [place] [address] * POCT lipid panel (2020 11:55 AM ESCALATOR ATTENDANT) Cholesterol, POC 188 mg/dL HDL, POC 50 mg/dL Triglycerides, POC 149 mg/dL LDL Cholesterol POC 108 mg/dL Chol/HDL Ratio, POC 3.8 Non-HDL Cholesterol, POC 138 mg/dL Cholesterol Total, POC 188 mg/dL Capillary blood 2020 1 1:55 AM ESCALATOR ATTENDANT us Ashok Macario MD POINT OF CARE TEST ORDERABLES Fi nal Result from Last 3 Months or Most Recently Relevant to Health Maintenance Insurance MEDICARE [facility] [employer] [facility] Advance Directives For more information, please contact: [phone] * Full Code (Latest Code Status on File) Date Activated Date Inactivated Comments 05/24/2023 8:39 AM 05/24/2023 2:24 PM Care Teams Bronzer Relationship Specialty Start Date End Date Palomo Morejon DO [address] [place] [id number] PCP - General Family Medicine 06/15/20
--- OUTSIDE RECORDS SUMMARY | 2025-01-01 14:41 | XMS_ITS | Clinical Summary ---
Author Organization [facility] Address [address] [place] [address] Phone Care Team Providers Care Business Analyst Sales Operations Name Role Phone Palomo Morejon DO Primary Care Provider + Allergies Active Allergy Reactions Criticality Noted Date Comments Amitriptyline Hcl Unknown Amlodipine Diarrhea 05/24/2020 Cortisone Swelling Duloxetine Hcl Swelling Duloxetine Anaphylaxis High 03/03/2020 Reaction: ANAPHYLAXIS, , Reaction: ANAPHYLAXIS, , Fentanyl Nausea 05/27/2020 Fluticasone Unknown Penicillins Unknown Fluticasone Furoate Swelling 10/16/2016 Medications atorvastatin (LIPITOR) 20 MG Tablet Take 20 mg by mouth daily. Active Probiotic Product (ALIGN) Capsule Acti ve Multiple Vitamins-Calcium (ONE-A-DAY WOMENS FORMULA) Tablet Take by mouth daily. Active metFORMIN (GLUCOPHAGE) 500 MG Tablet Take 2,000 mg by mouth nightly. 2 every night Active diltiazem (DILACOR XR) 240 MG CAPSULE SR 24 HR Take by mouth daily. Active Calcium Polycarbophil (FIBERCON PO) Take 2 Tabs by mouth daily. Active Multiple Vitamins-Minerals (PRESERVISION AREDS 2+MULTI VIT PO) Take 2 Tabs by mouth 2 times daily. Active pantoprazole (PROTONIX) 40 MG Tablet Delayed Response Take 1 Tab by mouth 2 times daily (before meals). 180 Tab 3 0 Active polyethylene glycol (GLYCOLAX, MIRALAX) 17 g Pack Take 17 g by mouth. Active levothyroxine (SYNTHROID) 25 MCG Tablet 0 Active other by Other route. Pain pump, morphine Active sucralfate (CARAFATE) 1 GM TabletIndications: Gastroesophageal reflux disease without esophagitis Take 1 Tablet by mouth every 6 hours. 120 Tablet 3 1 Active Active Problems Problem Noted Date Diagnosed Date Other specified diabetes brian litus with hyperglycemia, without long-term current use of insulin 12/13/2020 Gastroparesis 07/14/2020 Abdominal pain Constipation GERD (gastroesophageal reflux disease) Irritable bowel syndrome Immunizations Immunization Administration Dates Next Due Covid-19, Mrna, Lnp-s, Pf, 3 0 Mcg/0.3 Ml Dose (Tealium) 10/28/2020,10/07/2020 Influenza, High-dose, Quadrivalent 04/16/2020,,05/22/2017 Influenza, Trivalent, Adjuvanted, PF 05/13/2018 Influenza, high-dose, trivalent, PF 04/16/2020,0 04/24/2019,05/22/2017 Pneumococcal Vaccine - 13 Valent 05/22/2017 Pneumococcal Vaccine Adult - 23 Valent 1,06/11/2006 TDAP Vaccine 12/04/2012 Zoster Vaccine Recombinant 06/30/2019,02/12/2019 Zoster Vaccine, live 11/06/2016 Family History Medical History Relation Name Comments Cirrhosis Brother 1 Hypertension Brother 1 Cirrhosis Brother 2 Diabetes Father Heart Disease Father Colon Cancer Mother Stroke Mother Heart Disease Sister Hypertension Sister Relation Name Status Comments Brother 1 Brother 2 Father Mother Sister Social History Tobacco Use Types Packs/Day Years Used Date Smoking Tobacco: Former Cigarettes 1 20 0 09/24/1979 - 09/24/1999 Smokeless Tobacco: Never Tobacco Cessation:Counseling Given: No Alcohol Use Standard Drinks/Week Comments Not Currently 0 (1 standard drink = 0.6 oz pur e alcohol) 1x monthly Sexually Active Control Partners Comments Not Currently Comments No Sex and Gender Information Value Date Recorded Sex Assigned at Not on file Legal Sex Female 12:10 AM CDT Gender Identity Not on file Sexual Orientation Not on file 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 Not on file Not on file Last Filed Vital Signs Vital Sign Reading Time Taken Comments Blood Pressure 132/70 02/08/2021 10:43 AM CDT Pulse 82 02/08/2021 10:43 AM CDT Temperature 36.7 C (98 F) 12/13/2020 1:52 PM CDT Respiratory Rate 20 02/08/2021 10:43 AM CDT Oxygen Saturation 96% 02/08/2021 10:43 AM CDT Inhaled Oxygen Concentration - - Weight 83 kg (183 lb) 02/08/2021 10:43 AM CDT Height 165.1 cm (5' 5 ) 12/13/2020 1:52 PM CDT Body Mass Index 30.45 12/13/2020 1:52 PM CDT Plan of Treatment Health Maintenance Due Date Last Done Comments Diabetes: Eye Exam 1944 Diabetes: Foot Exam 1944 Diabetes: Hemoglobin A1c 1944 Hepatitis C Virus (HCV) Screening 1944 Diabetes: Nephropathy Screening 1962 Respiratory Syncytial Virus (RSV) Immunization (Adult) (1 - 1-dose 75+ series) 2019 Influenza Immunization (#1) 2024 09/0 11/2019, 04/16/2020, 04/24/2019, Additional history exists SARS-COV-2 Immunization ( season) 2024 06/05/2021, 10/28/2020, 10/07/2020 DTaP/Tdap/Td Immunization Discontinued 12/04/2012 Pneumococcal Immunization (50+ years) Completed 05/22/2017, 04/07/2011, 06/11/2006 Pneumococcal Immunization Combined Discontinued 05/22/2017, 04/07/2011, 06/11/2006 Colonoscopy High Risk Discontinued 09/24/2017 Colonoscopy Discontinued 09/24/2017 Colorectal Cancer Screening Discontinued Zoster Immunization Completed 06/30/2019, 02/12/2019, 11/06/2016 DEXA Bone Density Discontinued 02/23/2020, , 07/29/2015 Cologuard Discontinued Hepatitis B Immunization Aged Out No longer eligible based on patient's age to complete this topic Immunochemical Fecal Occult Blood Discontinued Meningococcal Immunization (ACWY) Aged Out No longer eligible based on patient's age to complete this topic Rotavirus Immunization Aged Out No lo nger eligible based on patient's age to complete this topic Procedures Procedure Name Priority Date/Time Associated Diagnosis Comments [facility] BONE DENSITOMETRY AXIAL SKELETON Routine 02/23/2020 Low bone mass from Last 3 Months or Most Recently Relevant to Health Maintenance Results * [facility] BONE DENSITOMETRY AXIAL SKELETON (02/23/2020) Anatomical Region Laterality Modality BODY N/A Other Lukas Ellison DO IMG DEXA ORDERABLES Edited Resu lt - Final from Last 3 Months or Most Recently Relevant to Health Maintenance Insurance MEDICARE [facility] Care Teams Business Analyst Sales Operations Relationship Specialty Start Date End Date Palomo Morejon DO [address] [place] [id number] PCP - General Family Medicine 03/03/20
--- OUTSIDE RECORDS SUMMARY | 2025-01-01 14:41 | XMS_ITS | Continuity of Care Document ---
Author Organization [facility] Address [address] [facility] [address] [place] [address] Phone Care Team Providers Care Change Number Operator Name Role Phone Joana Enrique Unavailable Unavailable Procedures Procedure Date Office/outpatient Visit, Est Dilated Retinal Exam W Interpretation De Eye Exam & Treatment Dilated Retinal Exam W Interpretation De Eye Exam, New Patient Visual Functional Status Assessed Refraction Advance Directives Directive Yes / No Effective Date File Name No Information Encounters Encounter Description Practice Location Reason(s) For Visit Diagnoses Date Provider Providers Copied on Encounter Office/outpat ient Visit, Est [facility], [address] [place] [address] [address], [place], [place], [id number], tel:[phone] [facility] No Information Dec-2 2-200 9 Iva Lara [address], [place], [place], [facility], [place]. tel:[phone] [facility], [address] [place] [address] [address], [place], [place], [id number], [place] tel:[phone] [facility] No Information Dec-0 9-200 8 Enrique [address] , [address], [place], [place], [facility], [place]. tel:[phone] [facility], [id number] [place] [address] [address], [place], [place], [id number], [place] tel:[phone] [facility] No Information Sep-2 8-200 7 Iva Lara [address] , [address], [place], [address], [place]. tel:[phone] Family History Family Member Type Diagnosis Age At Onset No Information Payers Payer name Insurance type Covered green party ID Authoriza tion(s) Medicare [facility] [id number] [facility] Commercial CI [id number] Social History Type Description Quantity Date Captured Comments Sex Female Smoking Status No Information Chief Complaint And Reason For Visit No Information Reason For Referral Reason For Referral No Information History Of Present Illness Encounter Date Complaint History Of Prese nt Illness No Information Functional Status Date Functional Assessmen t No Information Instructions Date Instruction Additional Infor mation No Information Assessments Type Assessment Date No Information Patient Care Teams Name Effective Dates (start - stop) Status Members No Information
--- OUTSIDE RECORDS SUMMARY | 2025-01-01 14:41 | XMS_ITS | Referral Summary ---
Author Organization [facility] Address [address] [place] [address] Care Team Providers Care Apparatus Lineman Name Role Phone Palomo Morejon DO Primary [...] 1 tablet (25 mcg total) by mouth bale piler before breakfast Active diltiazem (TIAZAC) 240 mg [...] without long-term current use of insulin 03/03/2020 Social History Tobacco Use Types Packs/Day Years [...] on file Legal Sex Female 1:35 AM ALL PURPOSE CLERK Gender Identity Not on file Sexual Orientation Not on file Last Filed Vital Signs [...] cm (5' 7 ) 06/27/2023 1:10 PM ALL PURPOSE CLERK Body Mass Index 30.54 06/27/2023 1:10 PM ALL PURPOSE CLERK Plan of Treatment Not on file Medical Devices Implanted Type Area Production Service Manager Device Identifier Shelf Expiration Date Model / Serial / Lot Medtronic Inc Synchromed Ii .78in [place] Filter Mesh Pouch Programmable 8637-20 - [id number] - [id number] Implanted:Qty: 1 on 11/27/2022 by Hugh Chong MD at [facility] Left: Abdomen Medtronic Inc 05/10/2024 8637-20 / [id number] / Explanted Type Area Production Service Manager Device Identifier Shelf Expiration Date Model / Serial / Lot Intrathecal Pain Pump Explanted:Qty: 1 on 11/27/2022 by Hugh Chong MD at [facility] Left: Abdomen Medtronic Description:Intrathecal Pain Pump Battery removed Procedures Procedure Name Priority Date/Time Associated Diagnosis Comments EGFR Routine 04/12/2023 11:43 AM CDT Abdominal pain POCT LIPID PANEL Routine 2020 11:5 5 AM ALL PURPOSE CLERK Hypertension associated with diabetes (HCC) from Last 3 Months or Most Recently Relevant to Health Maintenance Results * eGFR (04/12/2023 11:43 AM CDT) eGFR 75 mL/min/1. 73 m2 MEL YOUSSEF Comment: Interpretive Data Reference Interval Normal >/= [...] of Race in Diagnosing Kidney Disease, JASN 2020). The CKD-EPI equation should not be used for patients with unstable renal function and has not been validated in children and those over 70. Current interpretive data was last reviewed 2021. Testing performed by: [facility], [address] [place] [address]., [id number] Blood 04/12/2023 11:4 3 AM CDT 04/12/2023 12:05 PM CDT us E[facility] BLOOD ORDERABLES Final Result MEL [id number] [facility] Department [place] [address] * POCT lipid panel (2020 11:55 AM ALL PURPOSE CLERK) Cholesterol, POC 188 mg/dL HDL, POC 50 mg/dL Triglycerides, POC 149 mg/dL LDL Cholesterol POC 108 mg/dL Chol/HDL Ratio, POC 3.8 Non-HDL Cholesterol, POC 138 mg/dL Cholesterol Total, POC 188 mg/dL Capillary blood 2020 1 1:55 AM ALL PURPOSE CLERK us Ashok Macario MD POINT OF CARE TEST ORDERABLES Fi nal Result from Last 3 Months or Most Recently Relevant to Health Maintenance Insurance MEDICARE [facility] MEDICARE [facility] Advance Directives For more information, please contact: [phone] * Full Code (Latest Code Status on File) Date Activated Date Inactivated Comments 05/24/2023 8:39 AM 05/24/2023 2:24 PM Care Teams Apparatus Lineman Relationship Specialty Start Date End Date Palomo Morejon DO [address] [place] [id number] PCP - General Family Medicine 06/15/20
== END 2025-01-01 14:36 | disposition home or self-care (01) ==
PROVIDERS: PCP Student in an Organized Health Care Education/Training Program; Visit Provider Student in an Organized Health Care Education/Training Program
DX: M79.604 Pain in right leg (principal); M79.89 Other specified soft tissue disorders
CPT/HCPCS: 93971

== ENCOUNTER 2025-01-22 14:52 | Outpatient (CLI) | payer MEDICARE, SELFPAY ==
--- NOTE | ~2025-01-22 | MM_ITS ---
EXAMINATION: MM screening katrina BI w corbin HISTORY: Screening TECHNIQUE: Craniocaudal and mediolateral oblique 3-D tomosynthesis images were obtained and synthetic 2-D images were generated. CAD analysis was submitted and interpreted. COMPARISON: Comparison to multiple prior studies sequentially, with oldest reviewed study dated 07/13. BREAST PARENCHYMAL COMPOSITION: Not dense: There are scattered areas of fibroglandular density. FINDINGS: There is no evidence of suspicious mass, calcification, or architectural distortion to sugg est malignancy in either breast. There has been no suspicious interval change. IMPRESSION: 1. No mammographic evidence of malignancy. 2. Recommend routine screening mammography in one year. BI-RADS Category 1: Negative Reviewed, dictated and finalized at location B.
--- OUTSIDE RECORDS SUMMARY | 2025-01-22 15:32 | XMS_ITS | Clinical Summary ---
Author Organization [facility] Address [address] [place] [address] Care Team Providers Care Stopboard Assembler Name Role Phone Palomo Morejon DO Primary [...] 1 tablet (25 mcg total) by mouth blade sharpener before breakfast Active diltiazem (TIAZAC) 240 mg [...] on file Legal Sex Female 1:35 AM CONCAVER Gender Identity Not on file Sexual Orientation [...] 2:42 PM CDT Height 170.2 cm (5' 7) 06/27/2023 1:10 PM CONCAVER Body Mass Index 30.54 06/27/2023 1:10 PM CONCAVER Plan of Treatment Health Maintenance Due Date [...] Completed 04/07/2023 Medical Devices Implanted Type Area Office Machines Teacher Device Identifier Shelf Expiration Date Model / Serial / Lot Medtronic Inc Synchromed Ii .78in [place] Filter Mesh Pouch Programmable 8637-20 - [id number] - [id number] Implanted:Qty: 1 on 11/27/2022 by Hugh Chong MD at [facility] Left: Abdomen Med[employer]onic Inc 05/10/2024 8637-20 / [id number] / Explanted Type Area Office Machines Teacher Device Identifier Shelf Expiration Date Model / Serial / Lot Intrathecal Pain Pump Explanted:Qty: 1 on 11/27/2022 by Hugh Chong MD at [facility] Left: Abdomen Medtronic Description:Intrathecal Pain Pump Battery removed Procedures Procedure Name Priority Date/Time Associated Diagnosis Comments EGFR Routine 04/12/2023 11:43 AM CDT Abdominal pain POCT LIPID PANEL Routine 2020 11:5 5 AM CONCAVER Hypertension associated with diabetes (HCC) from Last [...] reviewed 2021. Testing performed by: [facility], [address] [place] [address]., [id number] Blood 04/12/2023 11:4 3 AM CDT 04/12/2023 12:05 PM CDT us Erum [facility] BLOOD ORDERABLES Final Result [facility] [address] [facility] Department [place] [address] * POCT lipid panel (2020 11:55 AM CONCAVER) Cholesterol, POC 188 mg/dL HDL, POC 50 mg/dL Triglycerides, POC 149 mg/dL LDL Cholesterol POC 108 mg/dL Chol/HDL Ratio, POC 3.8 Non-HDL Cholesterol, POC 138 mg/dL Cholesterol Total, POC 188 mg/dL Capillary blood 2020 1 1:55 AM CONCAVER us Ashok Macario MD POINT OF CARE TEST ORDERABLES Fi nal Result from Last 3 Months or Most Recently Relevant to Health Maintenance Insurance MEDICARE [facility] [id number] [facility] BLUE [facility] Advance Directives For more information, please contact: [phone] * Full Code (Latest Code Status on File) Date Activated Date Inactivated Comments 05/24/2023 8:39 AM 05/24/2023 2:24 PM Care Teams Stopboard Assembler Relationship Specialty Start Date End Date Palomo Morejon DO [address] [place] [address] PCP - General Family Medicine 06/15/20
--- OUTSIDE RECORDS SUMMARY | 2025-01-22 15:32 | XMS_ITS | Clinical Summary ---
Author Organization [facility] Address [address] [place] [address] Phone Care Team Providers Care Administrative Hearing Officer Name Role Phone Palomo Morejon DO Primary [...] Lnp-s, Pf, 3 0 Mcg/0.3 Ml Dose (Gemvara) 10/28/2020,10/07/2020 Influenza, High-dose, Quadrivalent 04/16/2020,,05/22/2017 Influenza, Trivalent, [...] 10:43 AM CDT Height 165.1 cm (5' 5) 12/13/2020 1:52 PM CDT Body Mass Index 30.45 12/13/2020 1:52 PM CDT Plan of Treatment Health Maintenance Due Date Last Done Comments Diabetes: Eye Exam 1944 Diabetes: Foot Exam 1944 Diabetes: Hemoglobin A1c 1944 Hepatitis C Virus (HCV) Screening 1944 Diabetes: Nephropathy Screening 1962 Respiratory Syncytial Virus (RSV) Immunization (Adult) (1 - 1-dose 75+ series) 2019 SARS-COV-2 Immunization ( season) 2024 06/05/2021, 10/28/2020, 10/07/2020 Influenza Immunization (Season Ended) 2025 04/16/2020, 04/16/2020, 04/24/2019, Additional history exists DTaP/Tdap/Td Immunization Discontinued 12/04/2012 Pneumococcal Immunization (50+ years) Completed 05/22/2017, 04/07/2011, 06/11/2006 Pneumococcal Immunization Combined Discontinued 05/22/2017, 04/07/2011, 06/11/2006 Colonoscopy Discontinued 09/24/2017 Colorectal Cancer Screening Discontinued Zoster Immunization Completed 06/30/2019, 02/12/2019, 11/06/2016 DEXA Bone Density Discontinued 02/23/2020, , 07/29/2015 Cologuard Discontinued Hepatitis B Immunization Aged Out No longer eligible based on patient's age to complete this topic Human Papillomavirus (HPV) Immunization Aged Out No longer eligible based on patient's age to complete this topic Immunochemical Fecal Occult Blood Discontinued Meningococcal Immunization (ACWY) Aged Out No longer eligible based on patient's age to complete this topic Rotavirus Immunization Aged Out No lo nger eligible based on patient's age to complete this topic Procedures Procedure Name Priority Date/Time Associated Diagnosis Comments [facility] BONE DENSITOMETRY AXIAL SKELETON Routine 02/23/2020 Low bone mass from Last 3 Months or Most Recently Relevant to Health Maintenance Results * KOURTNEY BONE DENSITOMETRY AXIAL SKELETON (02/23/2020) Anatomical Region Laterality Modality BODY N/A Other Lukas Ellison DO IMG DEXA ORDERABLES Edited Resu lt - Final from Last 3 Months or Most Recently Relevant to Health Maintenance Insurance MEDICARE [facility] Care Teams Administrative Hearing Officer Relationship Specialty Start Date End Date Palomo Morejon DO [address] [place] [id number] PCP - General Family Medicine 03/03/20
--- OUTSIDE RECORDS SUMMARY | 2025-01-22 15:32 | XMS_ITS | Referral Summary ---
Author Organization [facility] Address [address] [place] [address] Care Team Providers Care Tumbling Machine Operator Name Role Phone Palomo Morejon DO Primary [...] 1 tablet (25 mcg total) by mouth used car lot porter before breakfast Active diltiazem (TIAZAC) 240 mg [...] on file Legal Sex Female 1:35 AM HRIS COORDINATOR Gender Identity Not on file Sexual Orientation [...] 170.2 cm (5' 7) 06/27/2023 1:10 PM HRIS COORDINATOR Body Mass Index 30.54 06/27/2023 1:10 PM HRIS COORDINATOR Plan of Treatment Not on file Medical Devices Implanted Type Area Shrimp Header Device Identifier Shelf Expiration Date Model / Serial / Lot Medtronic Inc Synchromed Ii .78in [place] Filter Mesh Pouch Programmable 8637-20 - [id number] - [id number] Implanted:Qty: 1 on 11/27/2022 by Hugh Chong MD at [facility] Left: Abdomen [employer] Inc 05/10/2024 8637-20 / [id number] / Explanted Type Area Shrimp Header Device Identifier Shelf Expiration Date Model / Serial / Lot Intrathecal Pain Pump Explanted:Qty: 1 on 11/27/2022 by Hugh Chong MD at [facility] Left: Abdomen Medtronic Description:Intrathecal Pain Pump Battery removed Procedures Procedure Name Priority Date/Time Associated Diagnosis Comments EGFR Routine 04/12/2023 11:43 AM CDT Abdominal pain POCT LIPID PANEL Routine 2020 11:5 5 AM HRIS COORDINATOR Hypertension associated with diabetes (HCC) from Last [...] last reviewed 2021. Testing performed by: [facility], [address] [place] [address]., [address] Blood 04/12/2023 11:4 3 AM CDT 04/12/2023 12:05 PM CDT us Erum [facility] BLOOD ORDERABLES Final Result [facility] [address] [facility] Department [place] [address] * POCT lipid panel (2020 11:55 AM HRIS COORDINATOR) Cholesterol, POC 188 mg/dL HDL, POC 50 mg/dL Triglycerides, POC 149 mg/dL LDL Cholesterol POC 108 mg/dL Chol/HDL Ratio, POC 3.8 Non-HDL Cholesterol, POC 138 mg/dL Cholesterol Total, POC 188 mg/dL Capillary blood 2020 1 1:55 AM HRIS COORDINATOR us Ashok Macario MD POINT OF CARE TEST ORDERABLES Fi nal Result from Last 3 Months or Most Recently Relevant to Health Maintenance Insurance MEDICARE [facility] MEDICARE [facility] Advance Directives For more information, please contact: [phone] * Full Code (Latest Code Status on File) Date Activated Date Inactivated Comments 05/24/2023 8:39 AM 05/24/2023 2:24 PM Care Teams Tumbling Machine Operator Relationship Specialty Start Date End Date Palomo Morejon DO [address] [place] [phone] PCP - General Family Medicine 06/15/20
--- OUTSIDE RECORDS SUMMARY | 2025-01-22 15:32 | XMS_ITS | Continuity of Care Document ---
Author Organization [facility] [place] [address] [facility] [address] [place] [address] Phone Care Team Providers Care Nurse Assessor Name Role Phone Joana Enrique Unavailable Unavailable [...] Copied on Encounter Office/outpat ient Visit, Est [facility], [address] [place] [address] [address], [place], [place], [id number], tel:[phone] [facility] No Information Dec-2 2-200 9 Iva Lara [address] , [address], [place], [place], [facility], [place]. tel:[phone] [facility], [address] [place] [address] [address], [place], [place], [id number], [place] tel:[phone] [facility] No Information Dec-0 9-200 8 Enrique JoanaSamina [address] , [address], [place], [place], [facility], [place]. tel:[phone] [facility], [address] [place] [address] [address], [place], [place], [id number], [place] tel:[phone] [facility] No Information Sep-2 8-200 7 Iva Lara [address] , [address], [place], [address], [place]. tel:[phone] Family History Family Member Type Diagnosis Age At Onset No Information Payers Payer name Insurance type Covered republican ID Authoriza tion(s) Medicare [facility] [id number] [facility] Commercial CI [id number] Social History Type Description Quantity Date Captured [...]
== END 2025-01-22 14:53 | disposition home or self-care (01) ==
LOC: ANHIMG 14:55
PROVIDERS: PCP Student in an Organized Health Care Education/Training Program; Visit Provider Student in an Organized Health Care Education/Training Program
DX: Z12.31 Encounter for screening mammogram for malignant neoplasm of breast (principal)
CPT/HCPCS: 77063; 77067

== ENCOUNTER 2025-04-01 14:20 | Outpatient (CLI) | payer MEDICARE, SELFPAY ==
--- NOTE | ~2025-04-01 | XR_ITS ---
XR lumbar spine min 4V 04/01/2025 14:55 Indication: Lumbar spondylosis Procedure: 5 views lumbar spine Comparison: 03/31/2008 Findings: There is multilevel facet hypertrophy extending from L3-4 through L5- S1. There is disc narrowing at L4-5 and L5-S1. Vertebral body heights are maintained. No acute fracture or traumatic malalignment. No significant alteration of alignment with flexion/extension. Osteopenia. There is atheroscl erosis of the aorta. There are cholecystectomy clips. Impression: 1: Moderate lumbar spondylosis. Reviewed, dictated and finalized at location A. Impression: 1: Moderate lumbar spondylosis.
--- NOTE | ~2025-04-01 | XR_ITS ---
XR thoracic spine 3V 04/01/2025 14:55 Indication: Thoracic back pain Procedure: 3 views thoracic spine Comparison: No prior studies for comparison. Findings: There are mild endplate compression deformities of multiple midthoracic vertebra, likely chronic. Mildly accentuated thoracic kyphosis. Generalized osteopenia. There is mild levocurvature of the thoracic spine. No acute abnormality of the thoracic spine is seen. Impression: 1: Mild loss of vertebral body height of multiple midthoracic vertebra, likely chronic. Reviewed, dictated and finalized at location A. Impression: 1: Mild loss of vertebral body height of multiple midthoracic vertebra, likely chronic.
== END 2025-04-01 14:21 | disposition home or self-care (01) ==
LOC: MICIMG 14:23
PROVIDERS: PCP Student in an Organized Health Care Education/Training Program; Visit Provider Nurse Practitioner Family
DX: M54.6 Pain in thoracic spine (principal); M47.816 Spondylosis without myelopathy or radiculopathy, lumbar region
CPT/HCPCS: 72072; 72110

== ENCOUNTER 2025-04-29 13:34 | Outpatient (CLI) | payer MEDICARE, SELFPAY ==
--- NOTE | ~2025-04-29 | MR_ITS ---
EXAMINATION: MR lumbar spine wo chaz, 04/29/2025 14:15 CDT HISTORY: Radiculopathy, lumbar region COMPARISON: None TECHNIQUE: Multi-planar multi-sequence images were obtained of the lumbar spine without contrast per protocol. FINDINGS: Moderate loss of vertebral height throughout with grade 1 anterolisthesis of L4 on L5, no fracture identified. Marrow signal is appropriate with no abnormal signal in the posterior elements. Posterior alignment appears intact Conus terminates at T12-L1, no abnormal signal within the cord Moderate loss of disc height throughout most marked at L4-5 and L5-S1 with moderate disc desiccation and endplate degenerative changes at these levels The soft tissues appear unremarkable L5-S1: Circumferential bulging of the disc with ligamentum flavum and facet hypertrophy. Severe bilateral foramina and lateral recess stenosis, no canal stenosis. L4-5: Circumferential bulging of the disc with ligamentum flavum and facet hypertrophy asymmetrically to the right with moderate right foramina and lateral recess stenosis, no canal stenosis. L3-4: No canal or foraminal stenosis L2-L3: No canal or foraminal stenosis L1-L2: No canal or foraminal stenosis IMPRESSION: Degenerative changes detailed above Reviewed, dictated and finalized at location A.
--- NOTE | ~2025-04-29 | MR_ITS ---
EXAMINATION: MR thoracic spine wo chaz, 04/29/2025 13:45 CDT HISTORY: Back pain, thoracic COMPARISON: None TECHNIQUE: Multi-planar multi-sequence images were obtained of the thoracic spine without contrast per protocol. FINDINGS: Minimal loss of vertebral height throughout with kyphosis noted. Marrow signal is appropriate with scattered subcentimeter probable hemangiomas. There are some foci of hyperintense and STIR sequences probable atypical hemangiomas in the absence of previous neoplasm. No acute fracture or subluxation. Posterior alignment is intact. There is no abnormal signal within the posterior elements There is no abnormal signal within the cord Minimal loss of disc height throughout with minimal disc desiccation and endplate degenerative changes. There is no significant canal or foraminal stenosis identified The soft tissues appear unremarkable IMPRESSION: Degenerative changes detailed above Reviewed, dictated and finalized at location A.
== END 2025-04-29 13:35 | disposition home or self-care (01) ==
LOC: MICIMG 13:37
PROVIDERS: PCP Student in an Organized Health Care Education/Training Program; Visit Provider Nurse Practitioner Family
DX: M47.816 Spondylosis without myelopathy or radiculopathy, lumbar region (principal); M47.817 Spondylosis without myelopathy or radiculopathy, lumbosacral region; Z96.89 Presence of other specified functional implants
CPT/HCPCS: 72146; 72148